=== PATIENT | female | born 1970 | race African-American/Black ===

== ENCOUNTER 2016-08-24 08:59 | Emergency (ER) | payer SELFPAY ==
[~2016-08-24] VITALS: Ht 167.6 cm; Wt 89.0 kg
[~2016-08-24 08:59] MED LIST: ALBU17I INH; AMLO5TAB96 PO; ATOR40TA49 PO; CLON-352 PO; MIRTA15 PO; ZOLO50TA PO
[2016-08-24 09:07] VITALS: BP 157/98; PULSE 92; RESP 16; TEMP 98.2; O2SAT 98
--- NOTE | 2016-08-24 09:51 | PD ---
HPI . needs paxil and vistaril Chief Complaint: Medication Refill Request Time Seen by Provider: 09:51 Travel History International Travel<30 days: No Contact w/Intl Traveler<30days: No Traveled to known affect area: No History of Present Illness HPI 46-year-old female with history of depression here requesting refills. Patient just moved from [place] and tells me she tried to go to [facility] get her refills, but there was no one there to see her in an appropriate amount of time. Apparently she was told that she would have to wait for a walk-in visit, I was instructed to come to the emergency department for further refills. She is requesting a refill on Paxil and Vistaril. She reports a history of depression and admits to being depressed since her son . She has no primary care provider in the area. She does not have insurance. She is not suicidal or homicidal. PFSH Past Medical History Anemia: Yes Arthritis: No Asthma: No Depression: Yes Heart Rhythm Problems: Yes (HEART MURMER) Cancer: No Cardiovascular Problems: Yes (CHF) High Cholesterol: No Chest Pain: Yes Congestive Heart Failure: Yes COPD: Yes Cerebrovascular Accident: No Diminished Hearing: No Endocrine: No Gastrointestinal Disorders: Yes GERD: No Genitourinary: Yes (INCONTINENT) Headaches: Yes Hiatal Hernia: No Hypertension: Yes Immune Disorder: No Kidney Stones: No Musculoskeletal: Yes Neurologic: Yes Psychiatric: Yes Reproductive: No Respiratory: No Immunizations Current: Yes Renal Failure: Yes (RENAL INSUFFICIENCY) Seizures: No Sleep Apnea: No Ulcer: Yes ?: Unknown LMP: 08/14/2016 : 3 Para: 2 Miscarriage: 1 Tubal Ligation: Yes Past Surgical History Abdominal Surgery: Yes (/TUBAL) Section: Yes (x2) Other Surgery: No Social History Alcohol Use: Yes (WEEKLY) Tobacco Use: No Substance Use: No Allergies-Medications (Allergen,Severity, Reaction): Coded Allergies: No Known Allergies (Unverified , 08/24/16) Reported Meds & Prescriptions Reported Meds & Active Scripts Active Paxil (Paroxetine HCl) 40 Mg Tab 40 Mg PO DAILY Reported Paxil (Paroxetine HCl) 40 Mg Tab 40 Mg PO DAILY Review of Systems General / Constitutional: No: Fever Eyes: No: Visual changes HENT: No: Headaches Cardiovascular: No: Chest Pain or Discomfort Respiratory: No: Shortness of Breath Gastrointestinal: No: Abdominal Pain Genitourinary: No: Dysuria Musculoskeletal: No: Pain Skin: No Rash Neurologic: No: Weakness Psychiatric: Positive: Depression Endocrine: No: Polydipsia Hematologic/Lymphatic: No: Easy Bruising Physical Exam Narrative GENERAL: AAO x 3, no acute distress, Well-nourished, well-developed patient. SKIN: Warm and dry. No visible rashes or bruising. HEAD: Normocephalic and atraumatic. EYES: No scleral icterus. No injection or drainage. ENT: No nasal drainage noted. Mucous membranes pink. Airway patent. NECK: Supple, trachea midline. No JVD. CARDIOVASCULAR: Regular rate and rhythm without murmurs, gallops, or rubs. RESPIRATORY: Breath sounds equal bilaterally. No accessory muscle use. No rhonchi or rales. GASTROINTESTINAL: Normal visual inspection EXTREMITIES: No cyanosis or edema. BACK: Nontender without obvious deformity. No CVA tenderness. PSYCH: AAO x 3, depressed affect Data Data Last Documented VS Vital Signs Date Time Temp Pulse Resp B/P Pulse Ox O2 Delivery O2 Flow Rate FiO2 08/24/16 09:07 98.2 92 16 157/98 98 MDM Medical Decision Making Medical Screen Exam Complete: Yes Emergency Medical Condition: Yes Medical Record Reviewed: Yes Differential Diagnosis depression, anxiety, medication refill Narrative Course 46-year-old female with history of depression here requesting refills. Patient just moved from [place] and tells me she tried to go to [facility] get her refills, but there was no one there to see her in an appropriate amount of time. Apparently she was told that she would have to wait for a walk-in visit, I was instructed to come to the emergency department for further refills. She is requesting a refill on Paxil and Vistaril. She reports a history of depression and admits to being depressed since her son . She has no primary care provider in the area. She does not have insurance. She is not suicidal or homicidal. Patient seen and examined. She is in no signs of acute distress. She is not suicidal or homicidal. I discussed the case with Dr. Tucker and she agrees to me providing a few days worth of paxil until she is seen at [facility]. I've advised patient that she will need to any further refills from her primary care provider or Gabo Schaffer. Patient verbalized understanding of instructions, questions were answered, and thanked me for their care. I advised them if their condition worsens, please return to the nearest emergency room for further care. Diagnosis Primary Impression: Medication refill Additional Impression: Depressed affect Patient Instructions: General Instructions Additional Instructions: Please return to emergency department if your symptoms return or worsen. Follow up with your primary care provider. Take medications as prescribed. Please follow up with Gabo Schaffer for further refills. Med/Other Pt SpecificInfo: Prescription(s) given Scripts Paroxetine (Paxil)40 Mg Tab40 Mg PO DAILY #15 TAB Ref 0 Prov:Vidya Tucker MD 08/24/16 Disposition: 01 DISCHARGE HOME Condition: Stable Eva Bustamante Aug 24, 2016 09:51
[2016-08-24] MEDS ORDERED: PAXI40TA PO ×2 (10:02→10:14)
== END 2016-08-24 10:16 | disposition home or self-care (01) ==
LOC: NEPK 08:59
DX: F32.9 Major depressive disorder, single episode, unspecified (principal); I50.9 Heart failure, unspecified; I10 Essential (primary) hypertension; Z76.0 Encounter for issue of repeat prescription
CPT/HCPCS: 99281

== ENCOUNTER 2017-04-17 18:16 | Inpatient (IN) | payer SELFPAY ==
[~2017-04-17] VITALS: Ht 167.6 cm; Wt 87.0 kg
[~2017-04-17 18:16] MED LIST changes: -ALBU17I INH; -AMLO5TAB96 PO; -ATOR40TA49 PO; -CLON-352 PO; -MIRTA15 PO; +PAXI40TA PO; -ZOLO50TA PO
[2017-04-17 18:17] VITALS: BP 185/86; PULSE 84; RESP 16; TEMP 98.2; O2SAT 100
[2017-04-17 19:05] VITALS: BP 220/97; PULSE 78; RESP 18; O2SAT 100
[2017-04-17] MEDS ORDERED: SODIUM CHLOR 0.9% 1000 ML INJ 1,000 ML IV SCH (19:09)
--- NOTE | 2017-04-17 19:09 | PD ---
HPI Chief Complaint: Abnormal Results Time Seen by Provider: 18:59 Travel History International Travel<30 days: No Contact w/Intl Traveler<30days: No Traveled to known affect area: No History of Present Illness HPI 46-year-old Afro-[place] female with history of heavy uterine bleeding due to fibroids, who presents with recent history of increased shortness of breath and dyspnea with exertion. Patient was recently told by her primary care physician that she is anemic and requires transfusion. She is unsure what the number was for her hemoglobin. Patient states her last period was 24 March. She tends to have heavy periods with clots. Patient had recent lab work by her primary who contacted her directly today. She states no vaginal bleeding, pain, abdominal pain, chest pain, or other symptoms currently. She has no known drug allergies. PFSH Past Medical History Anemia: Yes Arthritis: No Asthma: No Depression: Yes Heart Rhythm Problems: Yes (HEART MURMER) Cancer: No Cardiovascular Problems: Yes (CHF) High Cholesterol: No Chest Pain: Yes Congestive Heart Failure: Yes COPD: Yes Cerebrovascular Accident: No Diminished Hearing: No Endocrine: No Gastrointestinal Disorders: Yes GERD: No Genitourinary: Yes (INCONTINENT) Headaches: Yes Hiatal Hernia: No Hypertension: Yes Immune Disorder: No Kidney Stones: No Musculoskeletal: Yes Neurologic: Yes Psychiatric: Yes Reproductive: No Respiratory: No Immunizations Current: Yes Renal Failure: Yes (RENAL INSUFFICIENCY) Seizures: No Sleep Apnea: No Ulcer: Yes : 3 Para: 2 Miscarriage: 1 Tubal Ligation: Yes Past Surgical History Abdominal Surgery: Yes (/TUBAL) Section: Yes (x2) Other Surgery: No Social History Alcohol Use: Yes (WEEKLY) Tobacco Use: No Substance Use: No Allergies-Medications (Allergen,Severity, Reaction): Coded Allergies: No Known Allergies (Unverified , 08/24/16) Reported Meds & Prescriptions Reported Meds & Active Scripts Active Reported Hydroxyzine HCl 25 Mg Tab 25 Mg PO DAILY Paxil (Paroxetine HCl) 30 Mg Tab 40 Mg PO DAILY Review of Systems Except as stated in HPI: all other systems reviewed are Neg General / Constitutional: No: Fever Eyes: No: Visual changes HENT: No: Headaches Cardiovascular: Positive: Dyspnea on exertion, No: Chest Pain or Discomfort, Palpitations, Irregular Rhythm, Tachycardia, Diaphoresis, Syncope, Varicosities , Edema, Cyanosis, Varicosities, Claudication Respiratory: No: Shortness of Breath Gastrointestinal: No: Nausea, Vomiting, Diarrhea, Abdominal Pain Genitourinary: Positive: Vaginal Bleeding, No: Urgency, Frequency, Dysuria Musculoskeletal: No: Pain Skin: No Rash Neurologic: No: Weakness Psychiatric: No: Depression Endocrine: No: Polydipsia Hematologic/Lymphatic: No: Easy Bruising Physical Exam Narrative GENERAL: Patient appears in no acute distress. SKIN: Warm and dry. Normal color. Normal turgor. HEAD: Atraumatic. Normocephalic. EYES: Pupils equal and round. No scleral icterus. Decreased conjunctival pallor or drainage. ENT: No nasal bleeding or discharge. Mucous membranes pink and moist. Pharynx is clear. Airway is patent NECK: Trachea midline. Supple nontender. CARDIOVASCULAR: Regular rate and rhythm. RESPIRATORY: No accessory muscle use. Clear to auscultation. Breath sounds equal bilaterally. GASTROINTESTINAL: Abdomen soft, non-tender, nondistended. Hepatic and splenic margins not palpable. MUSCULOSKELETAL: Extremities without clubbing, cyanosis, or edema. No obvious deformities. NEUROLOGICAL: Awake and alert. No obvious cranial nerve deficits. Motor grossly within normal limits. Five out of 5 muscle strength in the arms and legs. Normal speech. PSYCHIATRIC: Appropriate mood and affect; insight and judgment normal. Data Data Last Documented VS Vital Signs Date Time Temp Pulse Resp B/P (MAP) Pulse Ox O2 Delivery O2 Flow Rate FiO2 04/17/17 19:05 100 Room Air 04/17/17 19:05 78 18 220/97 (138) 04/17/17 18:17 98.2 Orders Orders Complete Blood Count With Diff (04/17/17 18:25) Comprehensive Metabolic Panel (04/17/17 18:25) Prothrombin Time / Inr (Pt) (04/17/17 18:25) Act Partial Throm Time (Ptt) (04/17/17 18:25) Type And Screen (04/17/17 18:25) Iv Access Insert/Monitor (04/17/17 19:09) Ecg Monitoring (04/17/17 19:09) Oximetry (04/17/17 19:09) Sodium Chlor 0.9% 1000 Ml Inj (Ns 1000 M (04/17/17 19:09) Sodium Chloride 0.9% Flush (Ns Flush) (04/17/17 19:15) Electrocardiogram (04/17/17 19:09) Vascular Access Team Consult/P PRN (04/17/17 20:23) Vascular Poc Ultrasound (04/17/17 ) Labs Laboratory Tests Test 04/17/17 18:50 Prothrombin Time 10.4 SEC Prothromb Time International Ratio 1.0 RATIO Activated Partial Thromboplast Time 21.7 SEC Blood Urea Nitrogen 11 MG/DL Creatinine 0.78 MG/DL Random Glucose 98 MG/DL Total Protein 7.8 GM/DL Albumin 3.9 GM/DL Calcium Level 8.0 MG/DL Alkaline Phosphatase 71 U/L Aspartate Amino Transf (AST/SGOT) 5 U/L Alanine Aminotransferase (ALT/SGPT) 12 U/L Total Bilirubin 0.3 MG/DL Sodium Level 139 MEQ/L Potassium Level 3.9 MEQ/L Chloride Level 109 MEQ/L Carbon Dioxide Level 22.9 MEQ/L Anion Gap 7 MEQ/L Estimat Glomerular Filtration Rate 95 ML/MIN MDM Medical Decision Making Medical Screen Exam Complete: Yes Emergency Medical Condition: Yes Differential Diagnosis Dyspnea with exertion. History of heavy uterine bleeding and anemia in the past. Possible need for transfusion. Narrative Course Patient is medically stable at time of exam. Labs ordered including CBC, CMP, coagulation studies, and type and screen. IV access is obtained. CMP is unremarkable. Coagulation studies are unremarkable. Type and screen is ordered. CBC at 2300 and is still pending after 3 redraws. Patient is discussed with Dr. Aparicio will determine final disposition of the patient pending CBC results. Condition: Stable Dago Marrufo Apr 17, 2017 19:09
[2017-04-17] MEDS ORDERED: HYDR-3133 PO (19:11)
[2017-04-17] MEDS ORDERED: PAXI30TA7 PO (19:11)
[2017-04-17] MEDS ORDERED: SODIUM CHLORIDE 0.9% FLUSH 10 ML FLUSH IV FLUSH PRN (19:15)
[2017-04-17 19:43] LABS: APTT (PATIENT) 21.7 SEC (24.3-30.1); PROTHROMBIN TIME - PATIENT 10.4 SEC (9.8-11.6)
[2017-04-17 19:46] LABS: ANION GAP 7 MEQ/L (5-15); AST (GOT) 5 U/L (15-37); BICARBONATE 22.9 MEQ/L (21.0-32.0); BLOOD UREA NITROGEN 11 MG/DL (7-18); CHLORIDE 109 MEQ/L (98-107); GLOMERULAR FILTRATION RATE 95 ML/MIN (>89); POTASSIUM 3.9 MEQ/L (3.5-5.1); SODIUM (NA) 139 MEQ/L (136-145)
[2017-04-17 19:47] LABS: ALT (GPT) 12 U/L (10-53)
[2017-04-17 19:49] LABS: ALKALINE PHOSPHATASE 71 U/L (45-117); TOTAL BILIRUBIN ADULT 0.3 MG/DL (0.2-1.0)
--- NOTE | 2017-04-17 23:18 | PD ---
Physical Exam Narrative General: The patient is a well-developed well-nourished female, pale appearing on arrival , otherwise in no acute distress. Head and Neck exam: Head is normocephalic atraumatic. Neck: No palpable lymphadenopathy. No nuchal rigidity. Cardiovascular: Regular rate and rhythm without murmurs, gallops, or rubs. Lungs: Clear to auscultation bilaterally. No wheezes, rhonchi, or rales. Abdomen: Soft, without tenderness to palpation in all 4 quadrants of the abdomen. No guarding, rebound, or rigidity. Normal bowel sounds are audible. No tenderness on palpation of McBurney's point. Extremities: No clubbing, cyanosis, or edema. Neurologic Exam: Grossly nonfocal. Data Data Last Documented VS Vital Signs Date Time Temp Pulse Resp B/P (MAP) Pulse Ox O2 Delivery O2 Flow Rate FiO2 04/17/17 19:05 100 Room Air 04/17/17 19:05 78 18 220/97 (138) 04/17/17 18:17 98.2 Orders Orders Complete Blood Count With Diff (04/17/17 18:25) Comprehensive Metabolic Panel (04/17/17 18:25) Prothrombin Time / Inr (Pt) (04/17/17 18:25) Act Partial Throm Time (Ptt) (04/17/17 18:25) Type And Screen (04/17/17 18:25) Iv Access Insert/Monitor (04/17/17 19:09) Ecg Monitoring (04/17/17 19:09) Oximetry (04/17/17 19:09) Sodium Chlor 0.9% 1000 Ml Inj (Ns 1000 M (04/17/17 19:09) Sodium Chloride 0.9% Flush (Ns Flush) (04/17/17 19:15) Electrocardiogram (04/17/17 19:09) Vascular Access Team Consult/P PRN (04/17/17 20:23) Vascular Poc Ultrasound (04/17/17 ) Blood Product Administration (04/18/17 00:40) Sodium Chlor 0.9% 250 Ml Inj (Ns 250 Ml (04/18/17 00:45) Admit Order (Ed Use Only) (04/18/17 00:41) Labs Laboratory Tests Test 04/17/17 18:50 04/17/17 23:45 Prothrombin Time 10.4 SEC Prothromb Time International Ratio 1.0 RATIO Activated Partial Thromboplast Time 21.7 SEC Blood Urea Nitrogen 11 MG/DL Creatinine 0.78 MG/DL Random Glucose 98 MG/DL Total Protein 7.8 GM/DL Albumin 3.9 GM/DL Calcium Level 8.0 MG/DL Alkaline Phosphatase 71 U/L Aspartate Amino Transf (AST/SGOT) 5 U/L Alanine Aminotransferase (ALT/SGPT) 12 U/L Total Bilirubin 0.3 MG/DL Sodium Level 139 MEQ/L Potassium Level 3.9 MEQ/L Chloride Level 109 MEQ/L Carbon Dioxide Level 22.9 MEQ/L Anion Gap 7 MEQ/L Estimat Glomerular Filtration Rate 95 ML/MIN White Blood Count 4.9 TH/MM3 Red Blood Count 4.03 MIL/MM3 Hemoglobin 4.9 GM/DL Hematocrit 19.5 % Mean Corpuscular Volume 48.3 FL Mean Corpuscular Hemoglobin 12.1 PG Mean Corpuscular Hemoglobin Concent 25.0 % Red Cell Distribution Width 23.4 % Platelet Count 204 TH/MM3 Mean Platelet Volume 9.0 FL Neutrophils (%) (Auto) 63.5 % Lymphocytes (%) (Auto) 27.5 % Monocytes (%) (Auto) 5.9 % Eosinophils (%) (Auto) 2.9 % Basophils (%) (Auto) 0.2 % Neutrophils # (Auto) 3.1 TH/MM3 Lymphocytes # (Auto) 1.3 TH/MM3 Monocytes # (Auto) 0.3 TH/MM3 Eosinophils # (Auto) 0.1 TH/MM3 Basophils # (Auto) 0.0 TH/MM3 CBC Comment AUTO DIFF Differential Comment AUTO DIFF CONFIRMED Platelet Estimate NORMAL Platelet Morphology Comment NORMAL Polychromasia 2.6 % Tear Drop Cells Ovalocytes 1+ Acanthocytes 1+ Keratocytes OCC MDM Medical Record Reviewed: Yes Supervised Visit with KAYLEIGH: Yes Narrative Course I, Dr. Aparicio, have reviewed the advance practice practitioner's documentation and am in agreement, met with the patient face to face, made the diagnosis, and the medical decision making was done by me. The patient was initially evaluated by Dago, the physician music assistant. Please see their complete history and physical. *My assessment and Findings: The patient presents with reports that she was told that she needed to be admitted for a blood transfusion after she had a low hemoglobin. She reports that she does have a history of uterine fibroids. She reports that she recently moved to the area and has not established with a cash management officer. She reports that she's had shortness of breath with exertion and lightheaded sensation. During the course of the patients emergency department visit, the patients history, examination, and differential diagnosis were reviewed with the patient. The patient was placed on a cardiac exercise physiologist with oximetry and frequent blood pressure monitoring. The patient had IV access obtained and blood work sent for analysis. The patient was given 2 units of packed red blood cells and 2 units were placed on hold after reassessing her hemoglobin. The patients laboratory studies were reviewed and remarkable for a hemoglobin of 4.9, MCV is noted to be 48.3, white count is 4.9, platelets 204, CMP is unremarkable, PT 10.4, PTT 21.7 The patients results were discussed with the patient, including the plan of care. I explained that further testing and/ or monitoring is indicated based on the patients history, examination, and/ or laboratory findings. Therefore, I recommended admission for additional evaluation. The patient expressed understanding and was agreeable with this plan. The patient was admitted to the hospital in stable condition and sent to a bed under the care of [facility] service. Physician Communication Physician Communication The patient's case including history, pertinent physical examination findings, and laboratory studies were discussed with Dr. Mansfield. It was agreed that the patient would be admitted to the [facility] service. Diagnosis Primary Impression: Symptomatic anemia Additional Impression: Menometrorrhagia Admitting Information Admitting Physician Requests: Admit Referrals: [facility] Condition: Stable Deepika Aparicio MD Apr 17, 2017 23:18
[2017-04-18] VITALS (11 sets, daily range): BP systolic 144–181; BP diastolic 70–88; PULSE 62–85; RESP 16–18; TEMP 95.4–98.8; O2SAT 96–100
[2017-04-18 00:27] LABS: AUTOMATED NEUTROPHIL # 3.1 TH/MM3 (1.8-7.7); BASOPHIL % 0.2 % (0.0-2.0); EOSINOPHIL % 2.9 % (0.0-4.0); LYMPH % 27.5 % (9.0-44.0); LYMPHOCYTE # 1.3 TH/MM3 (1.0-4.8); MEAN CELL VOLUME 48.3 FL (80.0-100.0); MEAN CORPUSCULAR HEMOGLOBIN 12.1 PG (27.0-34.0); MONO % 5.9 % (0.0-8.0); NEUT % 63.5 % (16.0-70.0); PLATELET COUNT 204 TH/MM3 (150-450); RED BLOOD COUNT 4.03 MIL/MM3 (4.00-5.30); RED CELL DISTRIBUTION WIDTH 23.4 % (11.6-17.2); WHITE BLOOD COUNT 4.9 TH/MM3 (4.0-11.0)
[2017-04-18 00:28] LABS: EOSINOPHIL # 0.1 TH/MM3 (0-0.4); HEMO FLAGS AUTO DIFF
[2017-04-18 00:31] LABS: HEMATOCRIT 19.5 % (35.0-46.0)
[2017-04-18] MEDS ORDERED: SODIUM CHLOR 0.9% 250 ML INJ 250 ML IV ONE ×2 (00:45→01:15)
[2017-04-18 00:56] LABS: OVALOCYTES 1+ (NORMAL)
[2017-04-18 00:57] LABS: ACANTHOCYTES 1+ (NORMAL); KERATOCYTES OCC (NORMAL)
[2017-04-18 00:59] LABS: POLYCHROMASIA 2.6 % (0.0-1.9)
[2017-04-18 01:00] LABS: PLATELET ESTIMATE SMEAR NORMAL (NORMAL); SCAN/DIFF AUTO DIFF CONFIRMED
[2017-04-18 01:01] LABS: PLATELET MORPHOLOGY NORMAL (NORMAL)
[2017-04-18] MEDS ORDERED: ONDANSETRON HCL 4 MG/2 ML VIAL IVP PRN (01:45)
[2017-04-18] MEDS ORDERED: NALOXONE HCL 0.4 MG/ML AMP IV PUSH PRN (01:45)
[2017-04-18] MEDS ORDERED: RESP: ALBUTEROL 2.5 MG/IPRATROPIUM 0.5 MG NEB (PRN) NEB (01:45)
[2017-04-18] MEDS ORDERED: FUROSEMIDE 20 MG/2 ML VIAL IV PUSH ONE (01:45)
[2017-04-18] MEDS ORDERED: ACETAMINOPHEN 325 MG TAB PO PRN (01:45)
[2017-04-18] MEDS ORDERED: SODIUM CHLORIDE 0.9% FLUSH 10 ML FLUSH IV FLUSH PRN (01:45)
--- NOTE | 2017-04-18 02:57 | HHI.HP ---
[facility] No Primary Care Physician Admission Diagnosis symptomatic anemia, uterine fibroids Diagnoses: Travel History International Travel<30 Days: No Contact w/Intl Traveler <30 Da: No Traveled to Known Affected Are: No History of Present Illness 46-year-old female with a past medical history significant for hypertension, depression, previous neurogenic bladder and CHF (last echo done in 2011 showed an EF of 55-60%) presents to the emergency department after being told by her psychiatric care provider at [facility] that she had low blood levels and that she needed to go to the emergency department. The patient reports a 3 month history of fatigue, dizziness and shortness of breath. She has a known diagnosis of uterine fibroids and has required transfusions in the past for this. She has regular menses with last menstrual period occurring on 03/24. She states her periods last approximately 5-6 days and she uses 4-5 pads at a time. H&H 4.9/19.5. She is not currently experiencing any vaginal bleeding. Vital signs stable. Review of Systems Denies fever or chills Denies blurry vision, otorrhea, rhinorrhea Denies sore throat and cough No chest pain, palpitations, positive shortness of breath No abdominal pain Denies constipation/diarrhea/nausea/vomiting Denies muscle pain/weakness No rashes Past Family Social History Past Medical History Hypertension, not currently on any medications Depression CHF History of neurogenic bladder Past Surgical History 2 Reported Medications Reported Meds & Active Scripts Active Reported Hydroxyzine HCl 25 Mg Tab 25 Mg PO DAILY Paxil (Paroxetine HCl) 30 Mg Tab 40 Mg PO DAILY Allergies: Coded Allergies: No Known Allergies (Unverified Allergy, Unknown, 04/18/17) Family History Mother with CAD. Social History Occasional alcohol. Denies tobacco, illicit drugs Physical Exam Vital Signs Vital Signs Date Time Temp Pulse Resp B/P (MAP) Pulse Ox O2 Delivery O2 Flow Rate FiO2 04/18/17 02:21 98.8 85 170/75 100 04/18/17 01:56 98.8 82 18 181/78 100 04/17/17 19:05 100 Room Air 04/17/17 19:05 78 18 220/97 (138) 100 Room Air 04/17/17 18:17 98.2 84 16 185/86 (119) 100 Physical Exam GENERAL: female lying in bed SKIN: No rashes, ecchymoses or lesions. Cool and dry. HEAD: Atraumatic. Normocephalic. No temporal or scalp tenderness. EYES: Pupils equal round and reactive. Extraocular motions intact. No scleral icterus. No injection or drainage. ENT: Nose without bleeding, purulent drainage or septal hematoma. Throat without erythema, tonsillar hypertrophy or exudate. Uvula midline. Airway patent. NECK: Trachea midline. No JVD or lymphadenopathy. Supple, nontender, no meningeal signs. CARDIOVASCULAR: Regular rate and rhythm without murmurs, gallops, or rubs. RESPIRATORY: Clear to auscultation. Breath sounds equal bilaterally. No wheezes , rales, or rhonchi. GASTROINTESTINAL: Abdomen soft, non-tender, nondistended. No hepato-splenomegaly , or palpable masses. No guarding. MUSCULOSKELETAL: Extremities without clubbing, cyanosis, or edema. No joint tenderness, effusion, or edema noted. No calf tenderness. NEUROLOGICAL: Awake and alert. Cranial nerves II through XII intact. Motor and sensory grossly within normal limits. Normal speech. Laboratory Laboratory Tests Test 04/17/17 18:50 04/17/17 23:45 Prothrombin Time 10.4 Prothromb Time International Ratio 1.0 Activated Partial Thromboplast Time 21.7 Blood Urea Nitrogen 11 Creatinine 0.78 Random Glucose 98 Total Protein 7.8 Albumin 3.9 Calcium Level 8.0 Alkaline Phosphatase 71 Aspartate Amino Transf (AST/SGOT) 5 Alanine Aminotransferase (ALT/SGPT) 12 Total Bilirubin 0.3 Sodium Level 139 Potassium Level 3.9 Chloride Level 109 Carbon Dioxide Level 22.9 Anion Gap 7 Estimat Glomerular Filtration Rate 95 White Blood Count 4.9 Red Blood Count 4.03 Hemoglobin 4.9 Hematocrit 19.5 Mean Corpuscular Volume 48.3 Mean Corpuscular Hemoglobin 12.1 Mean Corpuscular Hemoglobin Concent 25.0 Red Cell Distribution Width 23.4 Platelet Count 204 Mean Platelet Volume 9.0 Neutrophils (%) (Auto) 63.5 Lymphocytes (%) (Auto) 27.5 Monocytes (%) (Auto) 5.9 Eosinophils (%) (Auto) 2.9 Basophils (%) (Auto) 0.2 Neutrophils # (Auto) 3.1 Lymphocytes # (Auto) 1.3 Monocytes # (Auto) 0.3 Eosinophils # (Auto) 0.1 Basophils # (Auto) 0.0 CBC Comment AUTO DIFF Differential Comment AUTO DIFF CONFIRMED Platelet Estimate NORMAL Platelet Morphology Comment NORMAL Polychromasia 2.6 Tear Drop Cells Ovalocytes 1+ Acanthocytes 1+ Keratocytes OCC Result Diagram: 04/17/17 2345 04/17/17 8939 Caprini VTE Risk Assessment Caprini VTE Risk Assessment: No/Low Risk (score <= 1) Caprini Risk Assessment Model Point Value = 1 Point Value = 2 Point Value = 3 Point Value = 5 Age 41-60 Minor surgery BMI > 25 kg/m2 Swollen legs Varicose veins or History of unexplained or recurrent spontaneous Oral contraceptives or hormone replacement Sepsis (< 1 month) Serious lung disease, including pneumonia (< 1 month) Abnormal pulmonary function Acute myocardial infarction Congestive heart failure (< 1 month) History of inflammatory bowel disease Medical patient at bed rest Age 61-74 Arthroscopic surgery Major open surgery (> 45 min) Laparoscopic surgery (> 45 min) Malignancy Confined to bed (> 72 hours) Immobilizing plaster cast Central venous access Age >= 75 History of VTE Family history of VTE Factor V Leiden Prothrombin [id number] Lupus anticoagulant Anticardiolipin antibodies Elevated serum homocysteine Heparin-induced thrombocytopenia Other congenital or acquired thrombophilia Stroke (< 1 month) Elective arthroplasty Hip, pelvis, or leg fracture Acute spinal cord injury (< 1 month) Prophylaxis Regimen Total Risk Factor Score Risk Level Prophylaxis Regimen 0-1 Low Early ambulation 2 Moderate Order ONE of the following: *Sequential Compression Device (SCD) *Heparin 5000 units SQ BID 3-4 Higher Order ONE of the following medications: *Heparin 5000 units SQ TID *Enoxaparin/Lovenox 40 mg SQ daily (WT < 150 kg, CrCl > 30 mL/min) *Enoxaparin/Lovenox 30 mg SQ daily (WT < 150 kg, CrCl > 10-29 mL/min) *Enoxaparin/Lovenox 30 mg SQ BID (WT < 150 kg, CrCl > 30 mL/min) AND/OR *Sequential Compression Device (SCD) 5 or more Highest Order ONE of the following medications: *Heparin 5000 units SQ TID (Preferred with Epidurals) *Enoxaparin/Lovenox 40 mg SQ daily (WT < 150 kg, CrCl > 30 mL/min) *Enoxaparin/Lovenox 30 mg SQ daily (WT < 150 kg, CrCl > 10-29 mL/min) *Enoxaparin/Lovenox 30 mg SQ BID (WT < 150 kg, CrCl > 30 mL/min) AND *Sequential Compression Device (SCD) Assessment and Plan Assessment and Plan Assessment/plan: 1. Severe anemia Patient with history of fibroids and heavy menses Not actively bleeding Transvaginal ultrasound pending Transfuse 2 units PRBCs now, patient may require additional units, follow CBC Patient will need close follow-up with Computational Scientist as an outpatient, not currently insured, case management consulted to assist 2. Hypertension Untreated as patient has no insurance Clonidine prn Monitor BP trend and start antihypertensives if needed 3. CHF Last ECHO 2011 showed EF of 55-60% IV lasix following transfusion 4. Depression Continue Paxil FEN Regular diet Monitor electrolytes SCDs Case discussed with ER physician at length Physician Certification 2 Midnight Certification Type: Admission for Inpatient Services Order for Inpatient Services The services are ordered in accordance with Medicare regulations or non- Medicare payer requirements, as applicable. In the case of services not specified as inpatient-only, they are appropriately provided as inpatient services in accordance with the 2-midnight benchmark. Estimated LOS (days): 2 2 days is the estimated time the patient will need to remain in the hospital, assuming treatment plan goals are met and no additional complications. Post-Hospital Plan: Not yet determined Lee Ann Mansfield MD Apr 18, 2017 02:57
[2017-04-18] MEDS: cloNIDine HCL 0.1 MG TAB PO PRN ×2 (05:30→20:55)
[2017-04-18] MEDS: SODIUM CHLORIDE 0.9% FLUSH 10 ML FLUSH IV FLUSH SCH ×2 (08:31→20:56)
[2017-04-18] MEDS: PARoxetine HCL 20 MG TAB PO SCH (08:33)
[2017-04-18] MEDS ORDERED: PILL SPLITTER OTHER PRN (09:30)
[2017-04-18] MEDS: amLODIPine BESYLATE 5 MG TAB PO SCH (09:40)
[2017-04-18] MEDS: HYDROCHLOROTHIAZIDE 12.5 MG CAP PO SCH (09:40)
--- NOTE | 2017-04-18 10:36 | RADRPT ---
EXAM DATE/TIME: 04/18/2017 09:45 [place] COMPARISON: No previous studies available for comparison. INDICATIONS : Increased bleeding. Fibroids. Shortness of breath. MEDICAL HISTORY : Heart murmur. CHF. Hypertension. Renal insufficiency. SURGICAL HISTORY : Tubal ligation. section. ENCOUNTER: Subsequent ACUITY: 2 days PAIN SCORE: 0/10 LOCATION: Bilateral pelvis MEASUREMENTS: UTERUS: 11.9 x 7.1 x 7.1 cm ENDOMETRIAL STRIPE: 12 mm RIGHT OVARY: 2.8 x 2.7 x 1.9 cm LEFT OVARY: 2.8 x 2.7 x 1.9 cm FINDINGS: UTERUS: Uterus is heterogeneous and contains multiple hypoechoic lesions including one within the mid uterus measuring 1.8 x 2.6 x 1.7 cm. One is seen within the right fundus measuring 2.4 x 2.4 x 2.1 cm. 2 oth ers measure 2.0 x 1.6 x 1.9 cm and 2.1 x 1.0 x 0.8 cm and may involve the endometrium. RIGHT OVARY: Ovary contains no mass or significant cystic lesion. LEFT OVARY: Ovary contains no mass or significant cystic lesion. MISCELLANEOUS: No free fluid. CONCLUSION: 1. Multiple uterine masses likely leiomyomas 2 of which may involve the endometrium. Followup studies are recommended. Brant Jarvis MD on April 18, 2017 at 10:32 Board Certified Radiologist. This report was verified electronically.
--- NOTE | 2017-04-18 11:47 | HHI.PR ---
Subjective Remarks Admission notes for today 46-year-old female with a past medical history significant for hypertension, depression, previous neurogenic bladder and CHF (last echo done in 2011 showed an EF of 55-60%) presents to the emergency department after being told by her psychiatric care provider at [facility] that she had low blood levels and that she needed to go to the emergency department. The patient reports a 3 month history of fatigue, dizziness and shortness of breath. She has a known diagnosis of uterine fibroids and has required transfusions in the past for this. She has regular menses with last menstrual period occurring on 03/24. She states her periods last approximately 5-6 days and she uses 4-5 pads at a time. H&H 4.9/19.5. She is not currently experiencing any vaginal bleeding. Vital signs stable. 04/18: patient admitted today, receiving her fourth unit of PRBCs, she has this recurrent vaginal bleed due to Uterine fibromas, will need Associate Project Manager evaluation for probable surgery. Objective Vital Signs Date Time Temp Pulse Resp B/P (MAP) Pulse Ox O2 Delivery O2 Flow Rate FiO2 04/18/17 09:56 95.4 77 17 147/70 100 04/18/17 08:00 96.8 66 17 156/81 (106) 99 04/18/17 06:46 96.1 62 161/77 (105) 100 04/18/17 04:30 96.6 64 178/82 (114) 100 04/18/17 04:05 97.5 62 170/84 (112) 100 04/18/17 02:51 04/18/17 02:21 98.8 85 170/75 100 04/18/17 01:56 98.8 82 18 181/78 100 04/17/17 19:05 100 Room Air 04/17/17 19:05 78 18 220/97 (138) 100 Room Air 04/17/17 18:17 98.2 84 16 185/86 (119) 100 I/O 04/17/17 04/17/17 04/17/17 04/18/17 04/18/17 04/18/17 07:00 15:00 23:00 07:00 15:00 23:00 Intake Total 800 ml 404 ml Balance 800 ml 404 ml Intake Packed Cells 800 ml 400 ml Blood Product IV Normal Saline Flush 4 ml # Voids 5 Result Diagram: 04/17/17 2345 04/17/17 1850 Imaging Last Impressions Pelvis Ultrasound 04/18/17 0000 Signed Impressions: Service Date/Time: Tuesday, April 18, 2017 09:45 - CONCLUSION: 1. Multiple uterine masses likely leiomyomas 2 of which may involve the endometrium. Followup studies are recommended. Brant Jarvis MD Procedures Blood transfusion four units of PRBCs Other Results Laboratory Tests Test 04/17/17 18:50 04/17/17 23:45 Prothrombin Time 10.4 SEC Prothromb Time International Ratio 1.0 RATIO Activated Partial Thromboplast Time 21.7 SEC Blood Urea Nitrogen 11 MG/DL Creatinine 0.78 MG/DL Random Glucose 98 MG/DL Total Protein 7.8 GM/DL Albumin 3.9 GM/DL Calcium Level 8.0 MG/DL Alkaline Phosphatase 71 U/L Aspartate Amino Transf (AST/SGOT) 5 U/L Alanine Aminotransferase (ALT/SGPT) 12 U/L Total Bilirubin 0.3 MG/DL Sodium Level 139 MEQ/L Potassium Level 3.9 MEQ/L Chloride Level 109 MEQ/L Carbon Dioxide Level 22.9 MEQ/L Anion Gap 7 MEQ/L Estimat Glomerular Filtration Rate 95 ML/MIN White Blood Count 4.9 TH/MM3 Red Blood Count 4.03 MIL/MM3 Hemoglobin 4.9 GM/DL Hematocrit 19.5 % Mean Corpuscular Volume 48.3 FL Mean Corpuscular Hemoglobin 12.1 PG Mean Corpuscular Hemoglobin Concent 25.0 % Red Cell Distribution Width 23.4 % Platelet Count 204 TH/MM3 Mean Platelet Volume 9.0 FL Neutrophils (%) (Auto) 63.5 % Lymphocytes (%) (Auto) 27.5 % Monocytes (%) (Auto) 5.9 % Eosinophils (%) (Auto) 2.9 % Basophils (%) (Auto) 0.2 % Neutrophils # (Auto) 3.1 TH/MM3 Lymphocytes # (Auto) 1.3 TH/MM3 Monocytes # (Auto) 0.3 TH/MM3 Eosinophils # (Auto) 0.1 TH/MM3 Basophils # (Auto) 0.0 TH/MM3 CBC Comment AUTO DIFF Differential Comment AUTO DIFF CONFIRMED Platelet Estimate NORMAL Platelet Morphology Comment NORMAL Polychromasia 2.6 % Tear Drop Cells Ovalocytes 1+ Acanthocytes 1+ Keratocytes OCC B-Type Natriuretic Peptide 78 PG/ML Objective Remarks GENERAL: female lying in bed SKIN: No rashes, ecchymoses or lesions. Cool and dry. HEAD: Atraumatic. Normocephalic. No temporal or scalp tenderness. EYES: Pupils equal round and reactive. Extraocular motions intact. No scleral icterus. No injection or drainage. ENT: Nose without bleeding, purulent drainage or septal hematoma. Throat without erythema, tonsillar hypertrophy or exudate. Uvula midline. Airway patent. NECK: Trachea midline. No JVD or lymphadenopathy. Supple, nontender, no meningeal signs. CARDIOVASCULAR: Regular rate and rhythm without murmurs, gallops, or rubs. RESPIRATORY: Clear to auscultation. Breath sounds equal bilaterally. No wheezes , rales, or rhonchi. GASTROINTESTINAL: Abdomen soft, non-tender, nondistended. No hepato-splenomegaly , or palpable masses. No guarding. MUSCULOSKELETAL: Extremities without clubbing, cyanosis, or edema. No joint tenderness, effusion, or edema noted. No calf tenderness. NEUROLOGICAL: Awake and alert. Cranial nerves II through XII intact. Motor and sensory grossly within normal limits. Normal speech. Medications and IVs Current Medications Medications (Trade) Dose Ordered Sig/Petra Route Start Time Stop Time Status Last Admin Sodium Chloride 250 ml @ 15 mls/hr ONCE ONCE IV 04/18/17 00:45 04/18/17 17:24 Sodium Chloride 250 ml @ 15 mls/hr ONCE ONCE IV 04/18/17 01:15 04/18/17 17:54 (NS Flush) 2 ml UNSCH PRN IV FLUSH 04/18/17 01:45 (NS Flush) 2 ml BID IV FLUSH 04/18/17 09:00 (Tylenol) 650 mg Q4H PRN PO 04/18/17 01:45 (Zofran Inj) 4 mg Q6H PRN IVP 04/18/17 01:45 (Narcan Inj) 0.4 mg UNSCH PRN IV PUSH 04/18/17 01:45 (Duoneb Neb) 1 ampule Q4HR NEB PRN NEB 04/18/17 01:45 (Paxil) 40 mg DAILY PO 04/18/17 09:00 04/18/17 08:33 (Catapres) 0.1 mg Q6H PRN PO 04/18/17 03:00 04/18/17 05:30 (Microzide) 12.5 mg DAILY PO 04/18/17 09:00 04/18/17 09:40 (Norvasc) 2.5 mg DAILY PO 04/18/17 09:00 04/18/17 09:40 (Pill Splitter) 1 ea UNSCH PRN OTHER 04/18/17 09:30 (Flu (Quadrivalent) Vaccine Inj) 0.5 ml ONCE ONCE IM 04/19/17 10:00 04/19/17 10:01 A/P Assessment and Plan 1. Severe anemia Patient with history of fibroids and heavy menses Not actively bleeding Transvaginal ultrasound confirm Leiomyomas. consult Associate Project Manager specialist. Status post blood transfusion four units of PRBCs following. 2. Hypertension started on HCTZ and Amlodipine 2.5 mg daily and following 3. Depression on Paxil FEN Regular diet SCDs Discharge Planning Once cleared by Associate Project Manager specialist. William Avelar MD Apr 18, 2017 11:47
--- NOTE | 2017-04-18 15:19 | EKG ---
Date Performed: 04/18/2017 Time Performed: 01:04:30 PTAGE: 46 years EKG: Sinus rhythm NORMAL ECG PREVIOUS TRACING : 07/15/2013 17.01 DOCTOR: Tereso Merritt Interpretating Date/Time 04/18/2017 15:18:12
--- NOTE | 2017-04-18 16:41 | PD.CONS ---
HPI Chief Complaint Vaginal bleeding Date Seen: Apr 18, 2017 Time Seen: 15:45 Travel History International Travel<30 Days: No Contact w/Intl Traveler<30Days: No Known Affected Area: No History of Present Illness HPI Patient is a 46 year old female with a past medical history of hypertension, CHF, neurogenic bladder, and depression that presented to the [facility] ED after being referred here by her psychiatric provider at [facility] for low hemoglobin levels. Patient states that she has a history of regular heavy periods that last 5-6 days and cycle every 28 days. She states that she uses up to 3-4 pads stacked at that time and changes them every 2-3 hours. She has been having heavy bleeding for 6 years and her periods and not painful. Her last period was on 03/24/17. She was started on a control pill in 2014 by a doctor at the [facility] in [place] which helped somewhat but she stopped taking the pill because she got a job and was not able to make it to clinic appointments resulting in her being lost to follow-up. She also knows that she has uterine fibroids and has actually had a blood transfusion in [place] for this. She had not seen a doctor since then until she moved back to [place] in June this year when she came to bury her son who was killed. Patient states that she had been feeling fatigued, short of breath, dizzy, and had chest pain for about 3 months. In the ED, hemoglobin and hematocrit were found to be 4.9/19.5. A transvaginal ultrasound was ordered on 04/18/17 which showed simple uterine masses likely leiomyomas, 2 of which may involve the endometrium. She was transfused 4 units of packed red blood cells. She denies having any symptoms of anemia today but states that she started having vaginal bleeding which she described as mild spotting. She thinks that it might be her regular periods because her last period was on 24 March. Para: 2 : 3 Miscarriage: 1 History Past Medical History Narrative Medical Hypertension CHF Neurogenic bladder Depression and anxiety Obstetric History Obstetric History A1 -2 C-sections, first one for failure to progress, second for distress -1 miscarriage at 11 weeks -Tubal ligation with the second Past Surgical History Narrative Surgical section and tubal ligation only Family History Narrative Family History No family history of a bleeding or clotting disorder Mother has CAD Social History Alcohol Use: Yes (drinks 1-2 vodka shots occasionally) Tobacco Use: No Substance Abuse: No Allergies-Medications (Allergen,Severity, Reaction): Coded Allergies: No Known Allergies (Unverified Allergy, Unknown, 04/18/17) Home Meds Reported Medications Hydroxyzine HCl (Hydroxyzine HCl) 25 Mg Tab, 25 MG PO DAILY, TAB 0 Refills 04/17/17 Paroxetine (Paxil) 30 Mg Tab, 40 MG PO DAILY, #30 TAB 0 Refills 04/17/17 Review of Systems General / Constitutional: No: Fever, Chills Eyes: No: Blurred Vision, Visual changes HENT: No: Headaches Cardiovascular: No: Chest Pain or Discomfort, Palpitations, Edema Respiratory: No: Cough, Short of Breath Gastrointestinal: Diarrhea (1 today), No: Nausea, Vomiting Genitourinary: Vaginal Bleeding, No: Dysuria, Discharge Musculoskeletal: No: Weakness, Cramping Skin: No Rash, No Itching Neurologic: No: Weakness, Dizziness, Headache Physical Exam Vital Signs Date Time Temp Pulse Resp B/P (MAP) Pulse Ox O2 Delivery O2 Flow Rate FiO2 04/18/17 12:00 98.8 72 16 152/72 (98) 99 04/18/17 09:56 95.4 77 17 147/70 100 04/18/17 08:00 96.8 66 17 156/81 (106) 99 04/18/17 06:46 96.1 62 161/77 (105) 100 04/18/17 04:30 96.6 64 178/82 (114) 100 04/18/17 04:05 97.5 62 170/84 (112) 100 04/18/17 02:51 04/18/17 02:21 98.8 85 170/75 100 04/18/17 01:56 98.8 82 18 181/78 100 04/17/17 19:05 100 Room Air 04/17/17 19:05 78 18 220/97 (138) 100 Room Air 04/17/17 18:17 98.2 84 16 185/86 (119) 100 Narrative GENERAL: Well-nourished, well-developed patient. Lying in bed SKIN: Warm and dry. HEAD: Normocephalic and atraumatic. EYES: No scleral icterus. No injection or drainage. ENT: No nasal drainage noted. Mucous membranes pink. Airway patent. NECK: Supple, trachea midline. No JVD. Thyroid not enlarged CARDIOVASCULAR: Regular rate and rhythm without murmurs, gallops, or rubs. RESPIRATORY: Breath sounds equal bilaterally. No accessory muscle use. ABDOMEN/GI: Abdomen soft, non-tender, bowel sounds present, no rebound, no guarding, uterus not palpable EXTREMITIES: No cyanosis or edema. NEUROLOGICAL: Awake and alert. Motor and sensory grossly within normal limits. Five out of 5 muscle strength in all muscle groups. Normal speech. PELVIC EXAM: Normally developed genitalia with no external lesions or eruptions. Vagina and cervix show no lesions, inflammation, or discharge. Fresh blood oozing from the vaginal os. OS patent. No cervical motion tenderness. Adnexa not enlarged Data Data Vital Signs Reviewed: Yes Orders Orders Complete Blood Count With Diff (04/17/17 18:25) Comprehensive Metabolic Panel (04/17/17 18:25) Prothrombin Time / Inr (Pt) (04/17/17 18:25) Act Partial Throm Time (Ptt) (04/17/17 18:25) Type And Screen (04/17/17 18:25) Iv Access Insert/Monitor (04/17/17 19:09) Ecg Monitoring (04/17/17 19:09) Oximetry (04/17/17 19:09) Sodium Chlor 0.9% 1000 Ml Inj (Ns 1000 M (04/17/17 19:09) Sodium Chloride 0.9% Flush (Ns Flush) (04/17/17 19:15) Electrocardiogram (04/17/17 19:09) Vascular Access Team Consult/P PRN (04/17/17 20:23) Vascular Poc Ultrasound (04/17/17 ) Blood Product Administration (04/18/17 00:40) Sodium Chlor 0.9% 250 Ml Inj (Ns 250 Ml (04/18/17 00:45) Admit Order (Ed Use Only) (04/18/17 00:41) Red Blood Cells (Rbc) (04/18/17 01:12) Sodium Chlor 0.9% 250 Ml Inj (Ns 250 Ml (04/18/17 01:15) Admit To Inpatient (04/18/17 ) Vital Signs (Adult) Q4H (04/18/17 01:31) Activity Oob With Assistance (04/18/17 01:31) Assemblies And Installations Inspector / Telemetry .CONTINUOUS (04/18/17 01:31) Intake + Output MONIK.QSHIFT (04/18/17 01:31) Diet Regular Basic (04/18/17 Breakfast) Sodium Chloride 0.9% Flush (Ns Flush) (04/18/17 01:45) Sodium Chloride 0.9% Flush (Ns Flush) (04/18/17 09:00) Acetaminophen (Tylenol) (04/18/17 01:45) Ondansetron Inj (Zofran Inj) (04/18/17 01:45) Basic Metabolic Panel (Bmp) (04/19/17 06:00) Complete Blood Count With Diff (04/19/17 06:00) Scd Bilateral/Knee High MONIK.BID (04/18/17 01:31) Collins Bilateral/Knee High MONIK.QSHIFT (04/18/17 01:31) Naloxone Inj (Narcan Inj) (04/18/17 01:45) Inpatient Certification (04/18/17 ) Albuterol-Ipratropium Neb (Duoneb Neb) (04/18/17 01:45) Paroxetine (Paxil) (04/18/17 09:00) Furosemide Inj (Lasix Inj) (04/18/17 01:45) Case Management Consult (04/18/17 ) B-Type Natriuretic Peptide (04/18/17 02:42) Us Pelvis Comp W Transvaginal (04/18/17 ) Clonidine (Catapres) (04/18/17 03:00) Physician Name Changes (04/18/17 ) Hydrochlorothiazide (Microzide) (04/18/17 09:00) Amlodipine (Norvasc) (04/18/17 09:00) Pill Splitter (Pill Splitter) (04/18/17 09:30) Influenza (Quad) Vaccine Inj (Flu (Quadr (04/19/17 10:00) Consult Gynecology (04/18/17 ) Hemoglobin (Hgb) (04/18/17 18:00) Hematocrit (Hct) (04/18/17 18:00) (Hub Use Only)Inp Phy Cons/Ref (04/18/17 ) Pants, Air-Maxime Large Bg (04/18/17 13:10) Labs Laboratory Tests Test 04/17/17 18:50 04/17/17 23:45 Prothrombin Time 10.4 Prothromb Time International Ratio 1.0 Activated Partial Thromboplast Time 21.7 Blood Urea Nitrogen 11 Creatinine 0.78 Random Glucose 98 Total Protein 7.8 Albumin 3.9 Calcium Level 8.0 Alkaline Phosphatase 71 Aspartate Amino Transf (AST/SGOT) 5 Alanine Aminotransferase (ALT/SGPT) 12 Total Bilirubin 0.3 Sodium Level 139 Potassium Level 3.9 Chloride Level 109 Carbon Dioxide Level 22.9 Anion Gap 7 Estimat Glomerular Filtration Rate 95 White Blood Count 4.9 Red Blood Count 4.03 Hemoglobin 4.9 Hematocrit 19.5 Mean Corpuscular Volume 48.3 Mean Corpuscular Hemoglobin 12.1 Mean Corpuscular Hemoglobin Concent 25.0 Red Cell Distribution Width 23.4 Platelet Count 204 Mean Platelet Volume 9.0 Neutrophils (%) (Auto) 63.5 Lymphocytes (%) (Auto) 27.5 Monocytes (%) (Auto) 5.9 Eosinophils (%) (Auto) 2.9 Basophils (%) (Auto) 0.2 Neutrophils # (Auto) 3.1 Lymphocytes # (Auto) 1.3 Monocytes # (Auto) 0.3 Eosinophils # (Auto) 0.1 Basophils # (Auto) 0.0 CBC Comment AUTO DIFF Differential Comment AUTO DIFF CONFIRMED Platelet Estimate NORMAL Platelet Morphology Comment NORMAL Polychromasia 2.6 Tear Drop Cells Ovalocytes 1+ Acanthocytes 1+ Keratocytes OCC B-Type Natriuretic Peptide 78 MDM Medical Record Reviewed: Yes Interpretation(s) Patient is a 46 year old female admitted with history of severe anemia and multiple uterine fibroids, two of which may involve the endometrium. She is status post 4 units of packed red blood cells and is clinically improved, but started active bleeding today. No history of DVT or stroke. Plan -Active vaginal bleeding -Will start tranexamic acid 1300mg PO TID -Please discharge home with enough tranexamic acid to complete 5 days of treatment; okay to give 1 refill -Patient will need a Pap smear and an endometrial biopsy -Will refer to manager cardiovascular Dr. Schmitz for outpatient management Thank you for this consult Discussed with Dr. Melvin Condition: Stable Eko,Angela Ramachandran MD R2 Apr 18, 2017 16:41
[2017-04-18] MEDS: TRANEXAMIC ACID 650 MG TAB PO SCH (20:56)
[2017-04-18 21:30] LABS: HEMATOCRIT 34.1 % (35.0-46.0)
[2017-04-19 00:25] VITALS: BP 153/88; PULSE 66; RESP 20; TEMP 96.1; O2SAT 98
[2017-04-19 04:53] VITALS: BP 160/77; PULSE 55; RESP 20; TEMP 96.7; O2SAT 96
[2017-04-19] MEDS: TRANEXAMIC ACID 650 MG TAB PO SCH (05:07)
[2017-04-19] MEDS: HYDROCHLOROTHIAZIDE 12.5 MG CAP PO SCH (07:37)
[2017-04-19] MEDS: amLODIPine BESYLATE 5 MG TAB PO SCH (07:37)
[2017-04-19] MEDS: PARoxetine HCL 20 MG TAB PO SCH (07:37)
[2017-04-19] MEDS: SODIUM CHLORIDE 0.9% FLUSH 10 ML FLUSH IV FLUSH SCH (07:38)
[2017-04-19 07:51] LABS: HEMATOCRIT 34.8 % (35.0-46.0); MEAN CELL VOLUME 61.1 FL (80.0-100.0); MEAN CORPUSCULAR HEMOGLOBIN 17.9 PG (27.0-34.0); PLATELET COUNT 140 TH/MM3 (150-450); RED BLOOD COUNT 5.69 MIL/MM3 (4.00-5.30); RED CELL DISTRIBUTION WIDTH 39.3 % (11.6-17.2); WHITE BLOOD COUNT 5.1 TH/MM3 (4.0-11.0)
[2017-04-19 07:54] LABS: HEMO FLAGS AUTO DIFF; MEAN CORPUSCULAR HGB CONC 29.4 % (32.0-36.0)
[2017-04-19 08:00] VITALS: BP 174/83; PULSE 56; RESP 17; TEMP 97; O2SAT 100
[2017-04-19 08:00] LABS: BICARBONATE 25.8 MEQ/L (21.0-32.0); POTASSIUM 4.3 MEQ/L (3.5-5.1)
[2017-04-19 08:41] LABS: BASOPHILS 1 % (0-2); EOSINOPHILS 7 % (0-4); NEUTROPHIL # MANUAL DIFF 3.4 TH/MM3 (1.8-7.7); PLATELET ESTIMATE SMEAR LOW (NORMAL); PLATELET MORPHOLOGY ENLARGED (NORMAL); POLYS (SEG NEUTROPHILS) 67 % (16-70); TARGET CELLS 1+ (NORMAL); WBC DIFF SAMPLE 100
[2017-04-19 08:42] LABS: ACANTHOCYTES 1+ (NORMAL); OVALOCYTES 1+ (NORMAL); SCAN/DIFF FINAL DIFF MANUAL
[2017-04-19] MEDS ORDERED: amLODIPine BESYLATE 5 MG TAB PO ONE (09:00)
[2017-04-19] MEDS ORDERED: IRON SUCROSE 100 MG/5 ML VIAL IV PUSH ONE (09:00)
--- NOTE | 2017-04-19 09:03 | HHI.PR ---
Subjective Remarks OB Patient is a 46-year-old para 2012 female who is a history of congestive heart failure, hypertension, depression, anxiety, and uterine fibroids. She's been transfused in the past for this. She presented with chronic menorrhagia which has been ongoing for 6 years. She was admitted with a hemoglobin of 4.9 and received 4 units packed red blood cells with a hemoglobin this morning of 10.2. This morning she reports she is feeling much better she reports that as noted in the consult her menses started yesterday. however with the oral transxamic acid which of note was just started yet started afternoon she is bleeding significantly less and reports that her bleeding is about half as much as she would normally be bleeding at this time. She reports that overnight until this morning she has used 7 pads. She reports that normally she uses 3 pads at a time and has to change them every hour. She reports that she is feeling well and currently asymptomatic from her anemia symptoms. From a [employer] perspective she is cleared to be discharged and she'll follow up with Dr. Cota in 2 weeks or sooner if needed, for example this menses is prolonged. She will be given a prescription for transxamic acid at discharge. We also discussed that she will need further testing as an outpatient including a Pap smear and endometrial biopsy. All of her questions were answered. She is clear for discharge from [employer] perspective Objective Vital Signs Date Time Temp Pulse Resp B/P (MAP) Pulse Ox O2 Delivery O2 Flow Rate FiO2 04/19/17 08:00 97.0 56 17 174/83 (113) 100 04/19/17 04:53 96.7 55 20 160/77 (104) 96 04/19/17 00:25 96.1 66 20 153/88 (109) 98 04/19/17 00:22 20 04/18/17 21:51 66 144/85 (104) 04/18/17 20:25 98.3 79 18 175/84 (114) 96 04/18/17 16:00 98.1 73 17 151/88 (109) 99 04/18/17 12:00 98.8 72 16 152/72 (98) 99 04/18/17 09:56 95.4 77 17 147/70 100 I/O 04/18/17 04/18/17 04/18/17 04/19/17 04/19/17 04/19/17 07:00 15:00 23:00 07:00 15:00 23:00 Intake Total 800 ml 806 ml 1440 ml 760 ml Balance 800 ml 806 ml 1440 ml 760 ml Intake Oral 1440 ml 760 ml Packed Cells 800 ml 800 ml Blood Product IV Normal Saline Flush 6 ml # Voids 5 10 4 # Bowel Movements 1 # Sanitary Pads 2 Pads Result Diagram: 04/19/17 0727 04/19/17 0727 Procedures Blood transfusion four units of PRBCs Katie Melvin MD Apr 19, 2017 09:03
[2017-04-19] MEDS ORDERED: AMLO10TA2 PO (09:12)
[2017-04-19] MEDS ORDERED: HYDR12.57 PO (09:12)
[2017-04-19] MEDS ORDERED: TRAN1TAB22 PO (09:12)
[2017-04-19] MEDS ORDERED: FERR150C PO (09:14)
[2017-04-19] MEDS ORDERED: INFLUENZA VIRUS VACCINE (QUADRIVALENT) 0.5 ML SYR IM ONE (10:00)
[2017-04-19] MEDS ORDERED: IRON SUCROSE INJ 200 MG in SODIUM CHLORIDE 0.9% INJ 100 ML IV ONE (10:30)
[2017-04-19 12:00] VITALS: BP 145/79; PULSE 71; RESP 17; TEMP 96.9; O2SAT 98
--- NOTE | 2017-04-19 14:51 | HHI.PR ---
Subjective Remarks Admission notes for today 46-year-old female with a past medical history significant for hypertension, depression, previous neurogenic bladder and CHF (last echo done in 2011 showed an EF of 55-60%) presents to the emergency department after being told by her psychiatric care provider at [facility]] that she had low blood levels and that she needed to go to the emergency department. The patient reports a 3 month history of fatigue, dizziness and shortness of breath. She has a known diagnosis of uterine fibroids and has required transfusions in the past for this. She has regular menses with last menstrual period occurring on 03/24. She states her periods last approximately 5-6 days and she uses 4-5 pads at a time. H&H 4.9/19.5. She is not currently experiencing any vaginal bleeding. Vital signs stable. 04/18: patient admitted today, receiving her fourth unit of PRBCs, she has this recurrent vaginal bleed due to Uterine fibromas, will need [employer] evaluation for probable surgery. 04/19: Seen in her bedroom, stable no new issues, seen by [employer] given Tranexamic acid and follow as outpatient by [employer] okay to discharge no nausea, vomit or diarrhea. Objective Vital Signs Date Time Temp Pulse Resp B/P (MAP) Pulse Ox O2 Delivery O2 Flow Rate FiO2 04/19/17 12:00 96.9 71 17 145/79 (101) 98 04/19/17 08:00 97.0 56 17 174/83 (113) 100 04/19/17 04:53 96.7 55 20 160/77 (104) 96 04/19/17 00:25 96.1 66 20 153/88 (109) 98 04/19/17 00:22 20 04/18/17 21:51 66 144/85 (104) 04/18/17 20:25 98.3 79 18 175/84 (114) 96 04/18/17 16:00 98.1 73 17 151/88 (109) 99 I/O 04/18/17 04/18/17 04/18/17 04/19/17 04/19/17 04/19/17 07:00 15:00 23:00 07:00 15:00 23:00 Intake Total 800 ml 806 ml 1440 ml 760 ml Balance 800 ml 806 ml 1440 ml 760 ml Intake Oral 1440 ml 760 ml Packed Cells 800 ml 800 ml Blood Product IV Normal Saline Flush 6 ml # Voids 5 10 4 # Bowel Movements 1 # Sanitary Pads 2 Pads Result Diagram: 04/19/17 0727 04/19/17 0727 Imaging Last Impressions Pelvis Ultrasound 04/18/17 0000 Signed Impressions: Service Date/Time: Tuesday, April 18, 2017 09:45 - CONCLUSION: 1. Multiple uterine masses likely leiomyomas 2 of which may involve the endometrium. Followup studies are recommended. Brant Jarvis MD Procedures Blood transfusion four units of PRBCs Other Results Laboratory Tests Test 04/17/17 18:50 04/17/17 23:45 04/19/17 07:27 Prothrombin Time 10.4 SEC Prothromb Time International Ratio 1.0 RATIO Activated Partial Thromboplast Time 21.7 SEC Blood Urea Nitrogen 11 MG/DL 12 MG/DL Creatinine 0.78 MG/DL 0.74 MG/DL Random Glucose 98 MG/DL 82 MG/DL Total Protein 7.8 GM/DL Albumin 3.9 GM/DL Calcium Level 8.0 MG/DL 8.5 MG/DL Alkaline Phosphatase 71 U/L Aspartate Amino Transf (AST/SGOT) 5 U/L Alanine Aminotransferase (ALT/SGPT) 12 U/L Total Bilirubin 0.3 MG/DL Sodium Level 139 MEQ/L 137 MEQ/L Potassium Level 3.9 MEQ/L 4.3 MEQ/L Chloride Level 109 MEQ/L 106 MEQ/L Carbon Dioxide Level 22.9 MEQ/L 25.8 MEQ/L Neutrophils (%) (Auto) 63.5 % Lymphocytes (%) (Auto) 27.5 % Monocytes (%) (Auto) 5.9 % Eosinophils (%) (Auto) 2.9 % Basophils (%) (Auto) 0.2 % Neutrophils # (Auto) 3.1 TH/MM3 Lymphocytes # (Auto) 1.3 TH/MM3 Monocytes # (Auto) 0.3 TH/MM3 Eosinophils # (Auto) 0.1 TH/MM3 Basophils # (Auto) 0.0 TH/MM3 Polychromasia 2.6 % Tear Drop Cells Keratocytes OCC B-Type Natriuretic Peptide 78 PG/ML White Blood Count 5.1 TH/MM3 Red Blood Count 5.69 MIL/MM3 Hemoglobin 10.2 GM/DL Hematocrit 34.8 % Mean Corpuscular Volume 61.1 FL Mean Corpuscular Hemoglobin 17.9 PG Mean Corpuscular Hemoglobin Concent 29.4 % Red Cell Distribution Width 39.3 % Platelet Count 140 TH/MM3 Mean Platelet Volume 9.1 FL CBC Comment AUTO DIFF Differential Total Cells Counted 100 Neutrophils % (Manual) 67 % Lymphocytes % 22 % Monocytes % 3 % Eosinophils % 7 % Basophils % 1 % Neutrophils # (Manual) 3.4 TH/MM3 Differential Comment FINAL DIFF MANUAL Platelet Estimate LOW Platelet Morphology Comment ENLARGED Target Cells 1+ Ovalocytes 1+ Acanthocytes 1+ Anion Gap 5 MEQ/L Estimat Glomerular Filtration Rate 101 ML/MIN Objective Remarks GENERAL: female lying in bed SKIN: No rashes, ecchymoses or lesions. Cool and dry. HEAD: Atraumatic. Normocephalic. No temporal or scalp tenderness. EYES: Pupils equal round and reactive. Extraocular motions intact. No scleral icterus. No injection or drainage. ENT: Nose without bleeding, purulent drainage or septal hematoma. Throat without erythema, tonsillar hypertrophy or exudate. Uvula midline. Airway patent. NECK: Trachea midline. No JVD or lymphadenopathy. Supple, nontender, no meningeal signs. CARDIOVASCULAR: Regular rate and rhythm without murmurs, gallops, or rubs. RESPIRATORY: Clear to auscultation. Breath sounds equal bilaterally. No wheezes , rales, or rhonchi. GASTROINTESTINAL: Abdomen soft, non-tender, nondistended. No hepato-splenomegaly , or palpable masses. No guarding. MUSCULOSKELETAL: Extremities without clubbing, cyanosis, or edema. No joint tenderness, effusion, or edema noted. No calf tenderness. NEUROLOGICAL: Awake and alert. Cranial nerves II through XII intact. Motor and sensory grossly within normal limits. Normal speech. A/P Assessment and Plan 1. Severe anemia hemoglobin today 10.2 Transvaginal ultrasound confirm Leiomyomas. [employer] recommended for follow up as outpatient and continue Tranexamic acid for five days Status post blood transfusion four units of PRBCs following. 2. Hypertension better today with Amlodipine 10 mg daily and HCTZ 12.5 mg daily , needs to follow with PCP. 3. Depression on Paxil FEN Regular diet SCDs Discharge Planning Okay to discharge home by [employer] specialist. William Avelar MD Apr 19, 2017 14:51
--- NOTE | 2017-04-19 14:54 | HHI.DS ---
Discharge Summary Admission Date Apr 18, 2017 at 00:42 Discharge Date: Apr 19, 2017 Admitting Diagnosis symptomatic anemia, uterine fibroids (1) Hypertension ICD Code: I10 - Hypertension Diagnosis: Principal Status: Acute (2) Noncompliance ICD Code: Z91.19 - Noncompliance Diagnosis: Principal Status: Acute (3) Menorrhagia ICD Code: N92.0 - Excessive and frequent menstruation with regular cycle Diagnosis: Principal (4) Anemia Diagnosis: Principal Status: Chronic Procedures Blood transfusion Brief History - From Admission 46-year-old female with a past medical history significant for hypertension, depression, previous neurogenic bladder and CHF (last echo done in 2011 showed an EF of 55-60%) presents to the emergency department after being told by her psychiatric care provider at [facility] that she had low blood levels and that she needed to go to the emergency department. The patient reports a 3 month history of fatigue, dizziness and shortness of breath. She has a known diagnosis of uterine fibroids and has required transfusions in the past for this. She has regular menses with last menstrual period occurring on 03/24. She states her periods last approximately 5-6 days and she uses 4-5 pads at a time. H&H 4.9/19.5. She is not currently experiencing any vaginal bleeding. Vital signs stable. CBC/BMP: 04/19/17 0727 04/19/17 0727 Significant Findings Laboratory Tests Test 04/17/17 18:50 04/17/17 23:45 04/18/17 20:54 04/19/17 07:27 Activated Partial Thromboplast Time 21.7 SEC (24.3-30.1) Calcium Level 8.0 MG/DL (8.5-10.1) Aspartate Amino Transf (AST/SGOT) 5 U/L (15-37) Chloride Level 109 MEQ/L (98-107) Hemoglobin 4.9 GM/DL (11.6-15.3) 10.0 GM/DL (11.6-15.3) 10.2 GM/DL (11.6-15.3) Hematocrit 19.5 % (35.0-46.0) 34.1 % (35.0-46.0) 34.8 % (35.0-46.0) Mean Corpuscular Volume 48.3 FL (80.0-100.0) 61.1 FL (80.0-100.0) Mean Corpuscular Hemoglobin 12.1 PG (27.0-34.0) 17.9 PG (27.0-34.0) Mean Corpuscular Hemoglobin Concent 25.0 % (32.0-36.0) 29.4 % (32.0-36.0) Red Cell Distribution Width 23.4 % (11.6-17.2) 39.3 % (11.6-17.2) Polychromasia 2.6 % (0.0-1.9) Ovalocytes 1+ (NORMAL) 1+ (NORMAL) Acanthocytes 1+ (NORMAL) 1+ (NORMAL) Keratocytes OCC (NORMAL) Red Blood Count 5.69 MIL/MM3 (4.00-5.30) Platelet Count 140 TH/MM3 (150-450) Eosinophils % 7 % (0-4) Platelet Estimate LOW (NORMAL) Platelet Morphology Comment ENLARGED (NORMAL) Target Cells 1+ (NORMAL) Imaging Last Impressions Pelvis Ultrasound 04/18/17 0000 Signed Impressions: Service Date/Time: Tuesday, April 18, 2017 09:45 - CONCLUSION: 1. Multiple uterine masses likely leiomyomas 2 of which may involve the endometrium. Followup studies are recommended. Brant Jarvis MD PE at Discharge GENERAL: female lying in bed SKIN: No rashes, ecchymoses or lesions. Cool and dry. HEAD: Atraumatic. Normocephalic. No temporal or scalp tenderness. EYES: Pupils equal round and reactive. Extraocular motions intact. No scleral icterus. No injection or drainage. ENT: Nose without bleeding, purulent drainage or septal hematoma. Throat without erythema, tonsillar hypertrophy or exudate. Uvula midline. Airway patent. NECK: Trachea midline. No JVD or lymphadenopathy. Supple, nontender, no meningeal signs. CARDIOVASCULAR: Regular rate and rhythm without murmurs, gallops, or rubs. RESPIRATORY: Clear to auscultation. Breath sounds equal bilaterally. No wheezes , rales, or rhonchi. GASTROINTESTINAL: Abdomen soft, non-tender, nondistended. No hepato-splenomegaly , or palpable masses. No guarding. MUSCULOSKELETAL: Extremities without clubbing, cyanosis, or edema. No joint tenderness, effusion, or edema noted. No calf tenderness. NEUROLOGICAL: Awake and alert. Cranial nerves II through XII intact. Motor and sensory grossly within normal limits. Normal speech. Hospital Course Admission notes for today 46-year-old female with a past medical history significant for hypertension, depression, previous neurogenic bladder and CHF (last echo done in 2011 showed an EF of 55-60%) presents to the emergency department after being told by her psychiatric care provider at [facility] that she had low blood levels and that she needed to go to the emergency department. The patient reports a 3 month history of fatigue, dizziness and shortness of breath. She has a known diagnosis of uterine fibroids and has required transfusions in the past for this. She has regular menses with last menstrual period occurring on 03/24. She states her periods last approximately 5-6 days and she uses 4-5 pads at a time. H&H 4.9/19.5. She is not currently experiencing any vaginal bleeding. Vital signs stable. 04/18: patient admitted today, receiving her fourth unit of PRBCs, she has this recurrent vaginal bleed due to Uterine fibromas, will need [employer] evaluation for probable surgery. 04/19: Seen in her bedroom, stable no new issues, seen by [employer] given Tranexamic acid and follow as outpatient by [employer] okay to discharge no nausea, vomit or diarrhea. Assessment and Plan 1. Severe anemia hemoglobin today 10.2 Transvaginal ultrasound confirm Leiomyomas. [employer] recommended for follow up as outpatient and continue Tranexamic acid for five days Status post blood transfusion four units of PRBCs following. 2. Hypertension better today with Amlodipine 10 mg daily and HCTZ 12.5 mg daily , needs to follow with PCP. 3. Depression on Paxil 4. Hyperlipidemia she has known hyperlipidemia but will need to follow with PCP to be able to take care of Statin management to follow Liver enzymes. FEN Regular diet SCDs Discharge Planning Okay to discharge home by [employer] specialist. Pt Condition on Discharge: Good Discharge Disposition: Discharge Home Discharge Time: <= 30 minutes Discharge Instructions DIET: Follow Instructions for: Heart Healthy Diet Activities you can perform: Regular-No Restrictions William Avelar MD Apr 19, 2017 14:54
== END 2017-04-19 12:44 | disposition home or self-care (01) | DRG 812 ==
LOC: NEPC 18:16 → NEDA 04-18 00:42 → N07B 04-18 02:28
PROVIDERS: ADMIT Internal Medicine; ATTEND Internal Medicine
PROC: 30233N1 Transfusion of Nonautologous Red Blood Cells into Peripheral Vein, Percutaneous Approach (ICD-10-PCS; principal; 2017-04-18)
DX: D64.9 Anemia, unspecified (principal); I11.0 Hypertensive heart disease with heart failure; I50.9 Heart failure, unspecified; D25.9 Leiomyoma of uterus, unspecified; E78.5 Hyperlipidemia, unspecified; N92.0 Excessive and frequent menstruation with regular cycle; N31.9 Neuromuscular dysfunction of bladder, unspecified; F32.9 Major depressive disorder, single episode, unspecified; F41.9 Anxiety disorder, unspecified; Z23 Encounter for immunization; Z91.19 Patient's noncompliance with other medical treatment and regimen
CPT/HCPCS: 36430; 76830; 76856; 80048; 80053; 83880; 85007; 85014; 85018; 85025; 85027; 85610; 85730; 86850; 86900; 86901; 86920; 90686; 93005; 96360; 96361; J1756; J1940; J7030; P9016; Q2038

== ENCOUNTER 2017-11-19 12:31 | Inpatient (IN) ==
--- NOTE | 2017-11-19 16:37 | ED ---
HPI General Chief complaint: Respiratory Symptoms Stated complaint: Sob Time Seen by Provider: 11/19/17 16:24 History of Present Illness HPI narrative: Patient presents to the emergency department complaining of dizziness and lightheadedness that started on Sunday. Patient states that she had the same symptoms in April she was admitted for blood transfusion. Her anemia is reportedly secondary to fibroids and iron deficiency and heavy menstrual cycles. Last menstrual period was November 11. Patient states that the dizziness is with exertion and has been progressively getting worse since Sunday. She denies syncope, headache, chest pain, lower extremity edema, recent travel, abdominal pain, bloody stool, hemoptysis, or hematuria. She did have shortness of breath with exertion earlier today at work. Related Data Home Medications Medication Instructions Recorded Confirmed No Known Home Medications 11/20/17 11/20/17 Previous Rx's Medication Instructions Recorded amlodipine [Norvasc] 5 mg PO DAILY #30 tab 11/20/17 ferrous sulfate [Feosol] 325 mg PO BID #60 tab 11/20/17 Allergies Allergy/AdvReac Type Severity Reaction Status Date / Time No Known Allergies Allergy Verified 11/20/17 08:42 Review of Systems ROS Unobtainable All other systems reviewed negative except as stated in HPI [facility] Medical History Medical History Anemia (Acute) delivery delivered (Acute) Constipation (Acute) HTN (hypertension) (Acute) Iron deficiency anemia (Acute) MVP (mitral valve prolapse) (Acute) Neurogenic bladder (Acute) Uterine fibroid (Acute) Family History Family History Other CAD (coronary artery disease) Diabetes Social History Social History Substance History: No History of Abuse Second Hand Smoke Exposure: Yes Smoking Status: Never smoker How Often Do You Have a Drink Containing Alcohol: 2 to 4 times a month Recent Travel in [facility] within the Last 8 Weeks: No Recent Out of Country Travel within the Last 8 Weeks: No Exam Narrative Exam Narrative: GENERAL: No acute distress. SKIN: Focused skin assessment warm/dry. HEAD: Atraumatic. Normocephalic. EYES: Pupils equal and round. No scleral icterus. No injection or drainage. ENT: No nasal bleeding or discharge. Mucous membranes pink and moist. NECK: Trachea midline. No JVD. CARDIOVASCULAR: Regular rate and rhythm. No murmur appreciated. RESPIRATORY: No accessory muscle use. Clear to auscultation. Breath sounds equal bilaterally. GASTROINTESTINAL: Abdomen soft, non-tender, nondistended. Hepatic and splenic margins not palpable. Rectal: brown stool, hemoccult negative MUSCULOSKELETAL: No obvious deformities. No clubbing. No cyanosis. No edema. NEUROLOGICAL: Awake and alert. No obvious cranial nerve deficits. Motor grossly within normal limits. Normal speech. PSYCHIATRIC: Appropriate mood and affect; insight and judgment normal. Course Consultations Consultation #1: The patient's case including history, pertinent physical examination findings, and laboratory studies were discussed with Dr. Mansfield. It was agreed that the patient would be admitted to the hospitalist service. Initial Documented Vital Signs Temperature 98.4 F 11/19/17 12:52 Pulse Rate 84 11/19/17 12:52 Respiratory Rate 16 11/19/17 12:52 Blood Pressure 150/69 H 11/19/17 12:52 Pulse Oximetry 99 11/19/17 12:52 Last Documented Vital Signs Temperature 98.0 F 11/20/17 08:30 Pulse Rate 64 11/20/17 08:30 Respiratory Rate 20 11/20/17 08:30 Blood Pressure 165/82 H 11/20/17 08:30 Pulse Oximetry 98 11/20/17 08:00 Critical Care Time Critical Care Time: Yes Total Critical Care Time: 30 Attestation: Aggregate critical care time was 30 minutes. Time to perform other separately billable procedures was not included in the critical care time. My time did not include minutes spent treating any other patients simultaneously or on activities that did not directly contribute to the patient's treatment. Patient 's care required 1 unit PRBC transfusion, discussion with radiologist concerning CT findings and need for MRI, reviewing records to determine her anti -hypertensive regimen as patient didn't know what meds she was taking. The services I provided to this patient were to treat and/or prevent clinically significant deterioration that could result in: , increased morbidity, cardiac ischemia, syncope, and respiratory distress from worsening anemia. I provided critical care services requiring my management, as noted below: Chart data review, documentation time, medication orders and management, vital sign assessments/reviewing monitor data, ordering and reviewing lab tests, ordering and interpreting/reviewing x-rays and diagnostic studies, care of the patient and discussion of the patient with the admitting physicians. Sign Out Sign Out Data: Patient Sign Out occurred on 11/19/17 at 19:48. Patient's care was discussed, and care was transferred from Miranda Jack MD to Deepika Aparicio MD. Sign Out Comment: Awaiting MRI brain w/wo. Patient written for 1 U PRBCs, nurse to consent. Will admit for symptomatic anemia. Patient's also to get her BP med , HCTZ 12.5mg po and amlodipine 10mg po. Last updated by Miranda Jack MD at 11/19/17 19:21 Post-Handoff Eval: The patient's case was checked out to me by Dr. Jack at the conclusion of her shift. The patient is pending MRI reading for possible petechial hemorrhage. The patient presented with dizziness, lightheaded sensation. The patient was noted to have symptomatic anemia with a prior history of anemia related to fibroids of the uterus. The patient's hemoglobin was found to be 7. The patient was typed and crossmatched for blood administration in anticipation of being admitted. The patient was provided 1 unit of packed red blood cells. The patient was also noted to be hypertensive and was given her usual blood pressure medications hydrochlorothiazide and amlodipine in the emergency department. MRI is remarkable for ischemic white matter changes without any evidence of hemorrhage or infarct. The patient will be admitted to the hospital for symptomatic anemia. The patient's results were discussed with the patient, including the plan of care. I explained that further testing and/ or monitoring is indicated based on the patient's history, examination, and/ or laboratory findings. Therefore, I recommended admission for additional evaluation. The patient expressed understanding and was agreeable with this plan. The patient was admitted to the hospital in stable condition and sent to a bed under the care of [facility]. Medical Decision Making MDM Narrative Medical decision making narrative: Patient presents to the emergency department complaining of dizziness and lightheadedness. 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 EKG, chest x-ray, head CT , orthostatic blood pressures, and labs ordered. Ct head :CONCLUSION: Probable benign chronic calcifications in the white metatracts bilaterally could be further characterized with brain MRI with and without contrast based on clinical grounds since punctate petechial hemorrhage is difficult to exclude. CXR-No acute process. Coags within normal limits. Creatinine and glucose increased. Potassium decreased, given 40MEQ KCl po. Patient not orthostatic. She's is hypertensive and reports non compliance with her medication. U/A positive for protein, nitrate and LE negative. Reviewing EMR, she was on amlodipine 10mg po and HCTZ 12.5 mg po. Both meds have been ordered for patient. Patient is anemic, Hbg 7.3, HCT 25. Last Hgb was 10 in April 2017. She has been typed and screened, written for 1 unit PRBCs fro symptomatic anemia. Patient will be signed out to oncbaltazar ALFARO for MRI results, admission. Differential Diagnosis Differential Diagnosis: ACS, CVA, TIA, ICH, cranial mass, UTI, , anemia Lab Data Result diagrams: 11/20/17 07:11 11/20/17 07:11 Lab Results 11/19/17 11/19/17 11/19/17 Range/Units 17:10 17:10 17:10 WBC 7.4 (4.0-11.0) th/mm3 RBC 4.71 (4.00-5.30) mil/mm3 Hgb 7.3 L (11.6-15.3) gm/dL Hct 25.0 L (35.0-46.0) % MCV 53.0 L (80.0-100.0) fL MCH 15.5 L (27.0-34.0) pg MCHC 29.2 L (32.0-36.0) % RDW 21.7 H (11.6-17.2) % Plt Count 283 (150-450) th/mm3 MPV 8.9 (7.0-11.0) fL Prelim Diff (Auto) Manual diff required WBC Differential Manual diff final Seg Neuts % (Manual) 83 H (16-70) % Band Neuts % (Manual) (0-6) % Lymphocytes % (Manual) 16 (9-44) % Monocytes % (Manual) 1 (0-8) % Eosinophils % (Manual) (0-4) % Basophils % (Manual) (0-2) % Abs Neuts (Manual) 6.1 (1.8-7.7) th/mm3 Differential Comment . Platelet Estimate Normal (Normal) Platelet Morphology Normal (Normal) Acanthocytes (Spur) (None) Keratocytes 1+ H (None) PT 10.3 (9.8-11.6) sec INR 1.0 Ratio APTT 22.3 L (24.3-30.1) sec Sodium 141 (136-145) meq/L Potassium 3.1 L (3.5-5.1) meq/L Chloride 106 (98-107) meq/L Carbon Dioxide 22.4 (21.0-32.0) meq/L Anion Gap 13 (5-15) meq/L BUN 13 (7-18) mg/dL Creatinine 1.14 H (0.50-1.00) mg/dL Estimated GFR 61 L (>89) mL/min Random Glucose 171 H (74-106) mg/dL Calcium 8.7 (8.5-10.1) mg/dL Total Bilirubin 0.4 (0.2-1.0) mg/dL AST 11 L (15-37) U/L ALT 16 (10-53) U/L Alkaline Phosphatase 83 (45-117) U/L Total Creatine Kinase 93 (26-192) U/L Troponin I Less than 0.02 L (0.02-0.05) ng/mL Total Protein 8.9 H (6.4-8.2) g/dL Albumin 4.3 (3.4-5.0) g/dL Urine Color (Yellw/Straw) Urine Clarity (Clear) Urine pH (5.0-8.5) Ur Specific [place] (1.002-1.035) Urine Protein (Neg-Trace) mg/dL Urine Glucose (UA) (Negative) mg/dL Urine Ketones (Negative) mg/dL Urine Occult Blood (Negative) Urine Nitrate (Negative) Urine Bilirubin (Negative) Urine Urobilinogen (Less than 2) mg/dL Ur Leukocyte Esterase (Negative) Urine RBC (0-3) /hpf Urine WBC (0-5) /hpf Ur Squamous Epith Cells (0-5) /hpf Urine Bacteria (None) /hpf Hyaline Casts (0-3) /lpf Urine Mucus (Occasional) /lpf Micro UA Comment Urine Culture Comments Blood Type Antibody Screen MTS Gel Crossmatch 11/19/17 11/19/17 11/19/17 Range/Units 18:00 18:00 23:52 WBC (4.0-11.0) th/mm3 RBC (4.00-5.30) mil/mm3 Hgb (11.6-15.3) gm/dL Hct (35.0-46.0) % MCV (80.0-100.0) fL MCH (27.0-34.0) pg MCHC (32.0-36.0) % RDW (11.6-17.2) % Plt Count (150-450) th/mm3 MPV (7.0-11.0) fL Prelim Diff (Auto) WBC Differential Seg Neuts % (Manual) (16-70) % Band Neuts % (Manual) (0-6) % Lymphocytes % (Manual) (9-44) % Monocytes % (Manual) (0-8) % Eosinophils % (Manual) (0-4) % Basophils % (Manual) (0-2) % Abs Neuts (Manual) (1.8-7.7) th/mm3 Differential Comment Platelet Estimate (Normal) Platelet Morphology (Normal) Acanthocytes (Spur) (None) Keratocytes (None) PT (9.8-11.6) sec INR Ratio APTT (24.3-30.1) sec Sodium (136-145) meq/L Potassium (3.5-5.1) meq/L Chloride (98-107) meq/L Carbon Dioxide (21.0-32.0) meq/L Anion Gap (5-15) meq/L BUN (7-18) mg/dL Creatinine (0.50-1.00) mg/dL Estimated GFR (>89) mL/min Random Glucose (74-106) mg/dL Calcium (8.5-10.1) mg/dL Total Bilirubin (0.2-1.0) mg/dL AST (15-37) U/L ALT (10-53) U/L Alkaline Phosphatase (45-117) U/L Total Creatine Kinase (26-192) U/L Troponin I (0.02-0.05) ng/mL Total Protein (6.4-8.2) g/dL Albumin (3.4-5.0) g/dL Urine Color Yellow (Yellw/Straw) Urine Clarity Hazy H (Clear) Urine pH 6.0 (5.0-8.5) Ur Specific [place] 1.020 (1.002-1.035) Urine Protein 30 H (Neg-Trace) mg/dL Urine Glucose (UA) Negative (Negative) mg/dL Urine Ketones Negative (Negative) mg/dL Urine Occult Blood Negative (Negative) Urine Nitrate Negative (Negative) Urine Bilirubin Negative (Negative) Urine Urobilinogen Less than 2 (Less than 2) mg/dL Ur Leukocyte Esterase Negative (Negative) Urine RBC 1 (0-3) /hpf Urine WBC 4 (0-5) /hpf Ur Squamous Epith Cells 5 (0-5) /hpf Urine Bacteria Rare H (None) /hpf Hyaline Casts 10 (0-3) /lpf Urine Mucus Few H (Occasional) /lpf Micro UA Comment Culture not ind Urine Culture Comments Culture not ind Blood Type B Positive Antibody Screen Negative MTS Gel Crossmatch See Detail 11/20/17 11/20/17 Range/Units 07:11 07:11 WBC 5.1 (4.0-11.0) th/mm3 RBC 4.70 (4.00-5.30) mil/mm3 Hgb 7.9 L (11.6-15.3) gm/dL Hct 26.4 L (35.0-46.0) % MCV 56.0 L (80.0-100.0) fL MCH 16.7 L (27.0-34.0) pg MCHC 29.9 L (32.0-36.0) % RDW 24.0 H (11.6-17.2) % Plt Count 236 (150-450) th/mm3 MPV 8.9 (7.0-11.0) fL Prelim Diff (Auto) Manual diff required WBC Differential Manual diff final Seg Neuts % (Manual) 71 H (16-70) % Band Neuts % (Manual) 1 (0-6) % Lymphocytes % (Manual) 20 (9-44) % Monocytes % (Manual) 3 (0-8) % Eosinophils % (Manual) 2 (0-4) % Basophils % (Manual) 3 H (0-2) % Abs Neuts (Manual) 3.7 (1.8-7.7) th/mm3 Differential Comment . Platelet Estimate Normal (Normal) Platelet Morphology Normal (Normal) Acanthocytes (Spur) Occ H (None) Keratocytes (None) PT (9.8-11.6) sec INR Ratio APTT (24.3-30.1) sec Sodium 141 (136-145) meq/L Potassium 3.5 (3.5-5.1) meq/L Chloride 108 H (98-107) meq/L Carbon Dioxide 22.8 (21.0-32.0) meq/L Anion Gap 10 (5-15) meq/L BUN 8 (7-18) mg/dL Creatinine 0.76 (0.50-1.00) mg/dL Estimated GFR Greater than 89 (>89) mL/min Random Glucose 93 (74-106) mg/dL Calcium 8.7 (8.5-10.1) mg/dL Total Bilirubin (0.2-1.0) mg/dL AST (15-37) U/L ALT (10-53) U/L Alkaline Phosphatase (45-117) U/L Total Creatine Kinase (26-192) U/L Troponin I (0.02-0.05) ng/mL Total Protein (6.4-8.2) g/dL Albumin (3.4-5.0) g/dL Urine Color (Yellw/Straw) Urine Clarity (Clear) Urine pH (5.0-8.5) Ur Specific [place] (1.002-1.035) Urine Protein (Neg-Trace) mg/dL Urine Glucose (UA) (Negative) mg/dL Urine Ketones (Negative) mg/dL Urine Occult Blood (Negative) Urine Nitrate (Negative) Urine Bilirubin (Negative) Urine Urobilinogen (Less than 2) mg/dL Ur Leukocyte Esterase (Negative) Urine RBC (0-3) /hpf Urine WBC (0-5) /hpf Ur Squamous Epith Cells (0-5) /hpf Urine Bacteria (None) /hpf Hyaline Casts (0-3) /lpf Urine Mucus (Occasional) /lpf Micro UA Comment Urine Culture Comments Blood Type Antibody Screen MTS Gel Crossmatch Imaging Data Radiologist's impression: Chest X-Ray 11/19/17 16:24 CONCLUSION: No acute cardiopulmonary disease. Head CT 11/19/17 16:31 CONCLUSION: Probable benign chronic calcifications in the white metatracts bilaterally could be further characterized with brain MRI with and without contrast based on clinical grounds since punctate petechial hemorrhage is difficult to exclude. Head MRI 11/19/17 17:50 CONCLUSION: 1. Mild white matter ischemic changes which could be related to history of hypertension. They are somewhat premature for a patient of this age. No MR findings of hemorrhage or recent infarct. ECG Data Attestation: I personally reviewed and interpreted this ECG as follows: (Sinus rhythm, rate 76, left axis deviation, T-wave inversion in lead III and V1, QTc 441, normal intervals, LVH) Discharge Plan Discharge Disposition Patient Disposition: 30 Still Patient Discharge Condition Condition: Good Discharge Order Discharge Orders: Discharge Order (Routine); Ordered 11/20/17 Ordered By: Vladimir Walker Discharge Details Diagnosis: Symptomatic anemia Physicians Team ED Provider: Deepika Aparicio Primary Care Provider: Primary Care Stephanie Taylor Attending Provider: Vladimir Walker Status ED Status: Left Department Discharge Information Discharge Date/Time: 11/20/17 08:30
--- NOTE | 2017-11-19 17:08 | XR ---
EXAM DATE: 11/19/2017 4:39 PM EDT AGE/SEX: 47 years / Female INDICATIONS: . Short of breath CLINICAL DATA: This is the patient's initial encounter. Patient reports that signs and symptoms have been present for 4 - 6 days and indicates a pain score of 0/10. MEDICAL/SURGICAL HISTORY: . Heart murmur. CHF. Hypertension. Renal insufficiency. . Tubal li gation. section. COMPARISON: [facility] [place], CHEST PA & LAT, 12/24/2012. . FINDINGS: The lungs are clear without infiltrate, nodule, or mass. There is no appreciable pleural effusion for technique. Heart and mediastinum are unremarkable. CONCLUSION: No acute cardiopulmonary disease. Electronically signed by: Ellen Poole MD 11/19/2017 5:07 PM EDT
--- NOTE | 2017-11-19 17:44 | CT ---
EXAM DATE: 11/19/2017 5:32 PM EDT AGE/SEX: 47 years / Female INDICATIONS: Dizziness today. CLINICAL DATA: This is the patient's initial encounter. Patient reports that signs and symptoms have been present for 1 day and indicates a pain score of 0/10. MEDICAL/SURGICAL HISTORY: Anemia. None. RADIATION DOSE: 56.35 CTDI (mGy) COMPARISON: No prior exams available for comparison. TECHNIQUE: CT of the head without contrast. Using automated exposure control and adjustment of the mA and/or kV according to patient size, radiation dose was kept as low as reasonably achievable to ob tain optimal diagnostic quality images. DICOM format image data is available electronically for revi ew and comparison. FINDINGS: There is no evidence for intracranial hemorrhage, mass effect, mass lesions, edema, or extra-axial fl uid collections. The visualized bony structures appear intact. The ventricles are normal size for t he patient's age. There are no signs of acute infarction for technique. There are 2 areas of somewha t rounded increased density in the right periventricular white matter tracks and one on the left side measuring 2 to 4 mm these have the appearance of chronic calcifications, however punctate hemorrhage is difficult to exclude. CONCLUSION: Probable benign chronic calcifications in the white metatracts bilaterally could be furt her characterized with brain MRI with and without contrast based on clinical grounds since punctate p etechial hemorrhage is difficult to exclude. Electronically signed by: Ellen Poole MD 11/19/2017 5:43 PM EDT
[2017-11-19 17:57] LABS: Activated Partial Thrombo Time 22.3 sec (24.3-30.1); Hemoglobin 7.3 gm/dL (11.6-15.3); Mean Corpuscular Hemoglobin 15.5 pg (27.0-34.0); Mean Platelet Volume 8.9 fL (7.0-11.0); Platelet Count 283 th/mm3 (150-450); Prothrombin Time 10.3 sec (9.8-11.6); Red Blood Count 4.71 mil/mm3 (4.00-5.30); Red Cell Distribution Width 21.7 % (11.6-17.2); White Blood Count 7.4 th/mm3 (4.0-11.0)
[2017-11-19 18:04] LABS: Alanine Aminotransferase 16 U/L (10-53); Albumin 4.3 g/dL (3.4-5.0); Anion Gap 13 meq/L (5-15); Aspartate Aminotransferase 11 U/L (15-37); Blood Urea Nitrogen 13 mg/dL (7-18); Calcium 8.7 mg/dL (8.5-10.1); Carbon Dioxide 22.4 meq/L (21.0-32.0); Chloride 106 meq/L (98-107); Glomerular Filtration Rate 61 mL/min (>89); Glucose,Random 171 mg/dL (74-106); Potassium 3.1 meq/L (3.5-5.1); Sodium 141 meq/L (136-145)
[2017-11-19 18:08] LABS: Alkaline Phosphatase 83 U/L (45-117); Total Protein 8.9 g/dL (6.4-8.2)
[2017-11-19 18:16] LABS: Creatine Kinase 93 U/L (26-192)
[2017-11-19 18:24] LABS: Bacteria,Urine Rare /hpf; Bilirubin,Urine Negative (Negative); Clarity,Urine Hazy (Clear); Color,Urine Yellow (Yellw/Straw); Glucose,Urine (UA) Negative (Negative); Hyaline Casts,Urine 10 /lpf (0-3); Leukocyte Esterase,Urine Negative (Negative); Mucus,Urine Few /lpf (Occasional); Nitrite,Urine Negative (Negative); Squamous Epithelial Cell,Urine 5 /hpf (0-5)
[2017-11-19 18:34] LABS: Mean Corpuscular HGB Conc 29.2 % (32.0-36.0)
[2017-11-19 18:42] LABS: Lymphocytes 16 % (9-44); Monocytes 1 % (0-8)
[2017-11-19 18:43] LABS: Platelet Estimate Normal (Normal); Platelet Morphology Normal (Normal)
[2017-11-19] MEDS ORDERED: hydroCHLOROthiazide 25 MG Tablet PO ONE (18:44)
[2017-11-19] MEDS ORDERED: amLODIPine 10 MG Tablet PO ONE (18:44)
[2017-11-19] MEDS ORDERED: Gadobenate Dimeglumine PF Inj 10 ML VIAL (for RAD MRI) IV.PUSH ONE (20:26)
--- NOTE | 2017-11-19 23:21 | MR ---
EXAM DATE: 11/19/2017 8:48 PM EDT AGE/SEX: 47 years / Female INDICATIONS: . punctuate hemorrhages on CT CLINICAL DATA: This is the patient's initial encounter. Patient reports that signs and symptoms have been present for 1 day and indicates a pain score of 4/10. MEDICAL/SURGICAL HISTORY: Hypertension. section. COMPARISON: No prior exams available for comparison. TECHNIQUE: Multiplanar, multisequence examination of the brain was performed without and with 19 ml M ultihance (gadobenate) contrast as a single exam dose. FINDINGS: There is abnormal signal intensity in the periventricular white matter mostly seen on the FLAIR image s. This is most characteristic of white matter ischemic change. No blooming artifact is identified to suggest hemorrhage. There is no mass effect or shift. No hydrocephalus. No recent infarct is identif ied. No abnormal extra-axial fluid collections. CONCLUSION: 1. Mild white matter ischemic changes which could be related to history of hypertension. They are so mewhat premature for a patient of this age. No MR findings of hemorrhage or recent infarct. Electronically signed by: Héctor Huff MD 11/19/2017 11:20 PM EDT
[2017-11-19] MEDS ORDERED: Sodium Chlor 0.9% Inj 250 ML IV.SIG SCH ×2 (23:45)
[2017-11-19] MEDS ORDERED: Temazepam 15 MG Capsule PO PRN (23:54)
[2017-11-19] MEDS ORDERED: Acetaminophen 325 MG Tablet PO PRN (23:54)
[2017-11-19] MEDS ORDERED: Bisacodyl 10 MG Supp RECTAL PRN (23:54)
--- NOTE | 2017-11-20 00:20 | P.HP ---
History of Present Illness Service: [facility] Primary Care Physician: No Primary Care Physician Chief Complaint: Dizziness, lightheadedness History of Present Illness: 47-year-old female with a past medical history significant for hypertension, mitral valve prolapse and anemia requiring blood transfusion on 04/22 presents to the emergency department for evaluation of dizziness and lightheadedness. The patient reports that she became short of breath on Sunday and then while at work today had an episode of dizziness and lightheadedness and felt as though she was going to pass out. The patient has previously been diagnosed with uterine fibroids. 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 She denies any chest pain. No abdominal pain. No nausea/vomiting/diarrhea. No fevers/ chills. Inpatient Certification: I certify that the inpatient services were ordered in accordance with Medicare regulations governing the order. This includes certification that hospital inpatient services are reasonable and necessary and in the case of services not specified as inpatient-only under 42 CFR 419.22(n), that they are appropriately provided as inpatient services in accordance to with the 2-midnight benchmark under 43 CFR 412.3(e) Estimated Total Length of Stay (Days): 1 Plans for Post Hospital Care: Home [facility] - History History Provided By: Patient - Medical History Medical History: Medical History (Last Updated 11/20/17 @ 00:16 by Lee Ann Mansfield MD) delivery delivered HTN (hypertension) MVP (mitral valve prolapse) - Family History Family History: Family History (Last Updated 11/20/17 @ 00:17 by Lee Ann Mansfield MD) Other CAD (coronary artery disease) Diabetes - Tobacco History Smoking Status: Never smoker - Alcohol History How Often Do You Have a Drink Containing Alcohol: 2 to 4 times a month - Substance Use History Substance History: No History of Abuse - Travel History Recent Travel in the [place] Within the Last 8 Weeks: No Recent Travel Out of the Country Within the Last 8 Weeks: No - Immunization History Tetanus Immunization: Unsure Hx Influenza Vaccine This Season: No Medications and Allergies Active Medications: Active Medications Acetaminophen (Tylenol) 650 mg PO Q4H PRN PRN Reason: Temp > 100.4 Al Hydroxide/Mg Hydroxide (Milk Of Magnesia Liq) 30 ml PO Q12H PRN PRN Reason: Mild Constipation Bisacodyl (Dulcolax Supp) 10 mg RECTAL DAILY PRN PRN Reason: SEVERE CONSITIPATION Sodium Chloride (Ns Inj) 250 mls @ 15 mls/hr IV.SIG ONCE ANYI Stop: 11/20/17 16:24 Sodium Chloride (Ns Inj) 250 mls @ 15 mls/hr IV.SIG ONCE ANYI Stop: 11/20/17 16:24 Lactulose (Lactulose Liq) 30 ml PO DAILY PRN PRN Reason: SEVERE CONSITIPATION Ondansetron HCl (Zofran Inj) 4 mg IV.PUSH Q6H PRN PRN Reason: NAUSEA OR VOMITING Senna/Docusate Sodium (Ana Maria-Colace) 1 tab PO BID ANYI Sennosides (Senokot) 17.2 mg PO Q12H PRN PRN Reason: Moderate Constipation Temazepam (Restoril) 15 mg PO HS PRN PRN Reason: INSOMNIA Allergies Allergy/AdvReac Type Severity Reaction Status Date / Time No Known Allergies Allergy Unverified 11/19/17 13:16 Home Medications Medication Instructions Recorded Confirmed Type No Known Home Medications 11/20/17 11/20/17 History Exam Vital signs: Vital Signs 11/19/17 12:52 11/19/17 13:16 11/19/17 17:16 Temperature 98.4 F Pulse Rate 84 76 76 Respiratory Rate 16 18 18 Blood Pressure 150/69 H 171/79 H 163/71 H Pulse Oximetry 99 97 99 11/19/17 18:18 11/19/17 22:04 11/19/17 23:16 Temperature Pulse Rate 70 63 70 Respiratory Rate 18 18 16 Blood Pressure 182/82 H 189/85 H 151/70 H Pulse Oximetry 98 100 Intake & Output 11/19/17 11/19/17 11/20/17 06:59 18:59 06:59 Weight 90.718 kg Narrative: Gen.: No acute distress Head: Normocephalic. Atraumatic. EENT: Pupils equal round and reactive to light. Nose without drainage. Airway intact. Throat without injection. Cardiovascular: Regular rate and rhythm. No murmurs, rubs or gallops. Respiratory: Lungs clear to auscultation bilaterally. No wheezes or rhonchi. Abdomen: Soft, nontender, nondistended. No peritoneal signs. Musculoskeletal: No gross deformities. No edema. Skin: No obvious rashes or erythema. Neuro: Sensory and motor grossly intact. Cranial nerves II through XII grossly intact. Psych: Appropriate mood and affect Results - Labs CBC & Chem 7: 11/19/17 17:10 11/19/17 17:10 Labs: Laboratory Results - last 24 hr 11/19/17 11/19/17 11/19/17 17:10 17:10 17:10 WBC 7.4 RBC 4.71 Hgb 7.3 L Hct 25.0 L MCV 53.0 L MCH 15.5 L MCHC 29.2 L RDW 21.7 H Plt Count 283 MPV 8.9 Prelim Diff (Auto) Manual diff required WBC Differential Manual diff final Seg Neuts % (Manual) 83 H Lymphocytes % (Manual) 16 Monocytes % (Manual) 1 Abs Neuts (Manual) 6.1 Differential Comment . Platelet Estimate Normal Platelet Morphology Normal Keratocytes 1+ H PT 10.3 INR 1.0 APTT 22.3 L Sodium 141 Potassium 3.1 L Chloride 106 Carbon Dioxide 22.4 Anion Gap 13 BUN 13 Creatinine 1.14 H Estimated GFR 61 L Random Glucose 171 H Calcium 8.7 Total Bilirubin 0.4 AST 11 L ALT 16 Alkaline Phosphatase 83 Total Creatine Kinase 93 Troponin I Less than 0.02 L Total Protein 8.9 H Albumin 4.3 Urine Color Urine Clarity Urine pH Ur Specific Bellflower Urine Protein Urine Glucose (UA) Urine Ketones Urine Occult Blood Urine Nitrate Urine Bilirubin Urine Urobilinogen Ur Leukocyte Esterase Urine RBC Urine WBC Ur Squamous Epith Cells Urine Bacteria Hyaline Casts Urine Mucus Micro UA Comment Urine Culture Comments Blood Type Antibody Screen MTS Gel Crossmatch 11/19/17 11/19/17 11/19/17 18:00 18:00 23:52 WBC RBC Hgb Hct MCV MCH MCHC RDW Plt Count MPV Prelim Diff (Auto) WBC Differential Seg Neuts % (Manual) Lymphocytes % (Manual) Monocytes % (Manual) Abs Neuts (Manual) Differential Comment Platelet Estimate Platelet Morphology Keratocytes PT INR APTT Sodium Potassium Chloride Carbon Dioxide Anion Gap BUN Creatinine Estimated GFR Random Glucose Calcium Total Bilirubin AST ALT Alkaline Phosphatase Total Creatine Kinase Troponin I Total Protein Albumin Urine Color Yellow Urine Clarity Hazy H Urine pH 6.0 Ur Specific Bellflower 1.020 Urine Protein 30 H Urine Glucose (UA) Negative Urine Ketones Negative Urine Occult Blood Negative Urine Nitrate Negative Urine Bilirubin Negative Urine Urobilinogen Less than 2 Ur Leukocyte Esterase Negative Urine RBC 1 Urine WBC 4 Ur Squamous Epith Cells 5 Urine Bacteria Rare H Hyaline Casts 10 Urine Mucus Few H Micro UA Comment Culture not ind Urine Culture Comments Culture not ind Blood Type B Positive Antibody Screen Negative MTS Gel Crossmatch See Detail - Imaging Impressions Chest X-Ray 11/19/17 16:24 CONCLUSION: No acute cardiopulmonary disease. Head CT 11/19/17 16:31 CONCLUSION: Probable benign chronic calcifications in the white metatracts bilaterally could be further characterized with brain MRI with and without contrast based on clinical grounds since punctate petechial hemorrhage is difficult to exclude. Head MRI 11/19/17 17:50 CONCLUSION: 1. Mild white matter ischemic changes which could be related to history of hypertension. They are somewhat premature for a patient of this age. No MR findings of hemorrhage or recent infarct. Caprini VTE Risk Assessment Caprini VTE Risk Assessment: No/Low Risk (score <= 1) Caprini Risk Assessment Model: Point Value = 1 Point Value = 2 Point Value = 3 Point Value = 5 Age 41-60 Minor surgery BMI > 25 kg/m2 Swollen legs Varicose veins or History of unexplained or recurrent spontaneous Oral contraceptives or hormone replacement Sepsis (< 1 month) Serious lung disease, including pneumonia (< 1 month) Abnormal pulmonary function Acute myocardial infarction Congestive heart failure (< 1 month) History of inflammatory bowel disease Medical patient at bed rest Age 61-74 Arthroscopic surgery Major open surgery (> 45 min) Laparoscopic surgery (> 45 min) Malignancy Confined to bed (> 72 hours) Immobilizing plaster cast Central venous access Age >= 75 History of VTE Family history of VTE Factor V Leiden Prothrombin [id number] Lupus anticoagulant Anticardiolipin antibodies Elevated serum homocysteine Heparin-induced thrombocytopenia Other congenital or acquired thrombophilia Stroke (< 1 month) Elective arthroplasty Hip, pelvis, or leg fracture Acute spinal cord injury (< 1 month) Prophylaxis Regimen: Total Risk Factor Score Risk Level Prophylaxis Regimen 0-1 Low Early ambulation 2 Moderate Order ONE of the following: *Sequential Compression Device (SCD) *Heparin 5000 units SQ BID 3-4 Higher Order ONE of the following medications: *Heparin 5000 units SQ TID *Enoxaparin/Lovenox 40 mg SQ daily (WT < 150 kg, CrCl > 30 mL/min) *Enoxaparin/Lovenox 30 mg SQ daily (WT < 150 kg, CrCl > 10-29 mL/min) *Enoxaparin/Lovenox 30 mg SQ BID (WT < 150 kg, CrCl > 30 mL/min) AND/OR *Sequential Compression Device (SCD) 5 or more Highest Order ONE of the following medications: *Heparin 5000 units SQ TID (Preferred with Epidurals) *Enoxaparin/Lovenox 40 mg SQ daily (WT < 150 kg, CrCl > 30 mL/min) *Enoxaparin/Lovenox 30 mg SQ daily (WT < 150 kg, CrCl > 10-29 mL/min) *Enoxaparin/Lovenox 30 mg SQ BID (WT < 150 kg, CrCl > 30 mL/min) AND *Sequential Compression Device (SCD) Assessment and Plan - Plan Assessment/plan: 1. Symptomatic anemia H&H 7.3/25.0 Transfuse 1 unit packed red blood cells Hemoccult negative in the ED Patient with history of uterine fibroids requiring transfusion in the past She will need outpatient follow-up with gynecology Case management consulted to help coordinate this 2. Hypertension Patient not currently on any medications Clonidine as needed FEN Regular diet Electrolytes: Status post repletion of potassium, monitor BMP
[2017-11-20 07:51] LABS: Hematocrit 26.4 % (35.0-46.0); Hemoglobin 7.9 gm/dL (11.6-15.3); Mean Corpuscular Hemoglobin 16.7 pg (27.0-34.0); Mean Platelet Volume 8.9 fL (7.0-11.0); Platelet Count 236 th/mm3 (150-450); White Blood Count 5.1 th/mm3 (4.0-11.0)
[2017-11-20 07:58] LABS: Mean Corpuscular HGB Conc 29.9 % (32.0-36.0)
[2017-11-20 08:02] LABS: Anion Gap 10 meq/L (5-15); Blood Urea Nitrogen 8 mg/dL (7-18); Calcium 8.7 mg/dL (8.5-10.1); Carbon Dioxide 22.8 meq/L (21.0-32.0); Chloride 108 meq/L (98-107); Glomerular Filtration Rate Greater Than 89 mL/min (>89); Glucose,Random 93 mg/dL (74-106); Potassium 3.5 meq/L (3.5-5.1); Sodium 141 meq/L (136-145)
[2017-11-20 08:42] LABS: Eosinophils 2 % (0-4); Lymphocytes 20 % (9-44); Monocytes 3 % (0-8)
[2017-11-20 08:43] LABS: Acanthocytes Occ; Platelet Estimate Normal (Normal); Platelet Morphology Normal (Normal)
[2017-11-20] MEDS ORDERED: Senna/Docusate Sodium 8.6/50 MG Tablet PO SCH (09:00)
--- NOTE | 2017-11-20 21:01 | ECG ---
Date Performed: 11/19/2017 Time Performed: 16:52:06 PTAGE: 47 years EKG: Sinus rhythm VOLTAGE CRITERIA FOR LVH ABNORMAL ECG No significant change when compared with previous DOCTOR: Dudley Teran Interpretating Date/Time 11/20/2017 20:59:56
== END 2017-11-20 14:40 | disposition home or self-care (01) ==
LOC: NEPE 12:31 → NEDH 22:20 → NEDA 11-20 06:14 → N06 11-20 08:15
PROVIDERS: ADMIT Hospitalist; ATTEND Hospitalist
DX: D64.9 Anemia, unspecified; I34.1 Nonrheumatic mitral (valve) prolapse; I10 Essential (primary) hypertension